=== PATIENT | female | born 1980 | race Caucasian/White ===

== ENCOUNTER 2018-03-30 10:15 | Emergency (ER) | payer BC ==
--- OUTSIDE RECORDS SUMMARY | 2018-03-30 10:22 | XMS REPORT ---
:1980 Author Organization [facility] Address [address] [place] [address] Dr. Burrell [address] [place] [id number] Care Team Providers Name Role Phone ELIANA HERNANDEZ Unavailable Unavailable Problems This patient has no known problems. Allergies, Adverse Reactions, Alerts This patient has no known allergies or adverse reactions. Medications This patient has no known medications. Results Test Description Test Time Test Comments Text Results Atomic Results Result Comments PROTHROMBIN GENE MUTATION 2017-02-04 13:15:00 Test Item Value Reference Range Comments PROTHROMBIN/FACTOR II (BEAKER) (test Negative for the [id number] lkkb=3452) (Prothrombin/Factor II) mutation. [id number](BEAKER) (test Ayse Castillo MD (electronic iyyj=8632) signature) This test is a genotyping assay which evaluates the DNA sequence at position [address]258 of the prothrombin (Factor II) gene. A region of the prothrombin (Factor II) gene is amplified by polymerase chain reaction followed by fluorescent monitoring of a specific pair of hybridized probes. Since genetic variation and other factors can affect the accuracy of direct mutation testing, these results should be interpreted in light of clinical and familial data.This test was developed and its performance characteristics determined by the [facility] Pathology Department, Section of Molecular Pathology. It has not been cleared or approved by the U.S. Food and Drug Administration (FDA), since FDA approval is not required for clinical use of the test. Validation was done as required by the Clinical Laboratory Improvement Amendments of 1988.CARDIOLIPIN ANTIBODIES, IGG AND [id number] 16:38:00 Test Item Value Reference Range Comments ANTICARDIOLIPIN IGG ANTIBODY (BEAKER) (test < GPL qrht=006) ANTICARDIOLIPIN IGM ANTIBODY (BEAKER) (test 0.2 MPL zltg=524) Anticardiolipin IgG Result Interpretation:NEG: <20 GPL; U/mlPOS: >/=20 GPL; U/mlAnticardiolipin IgM Result Interpretation:NEG: <20 MPL; U/mlPOS: >/=20 MPL; U/mlFACTOR 5 LEIDEN PCR (THROMBOTIC RISK)2017-02-03 12:23:00 Test Item Value Reference Range Comments FACTOR V LEIDEN (BEAKER) Negative for the R506Q (Factor (test rgbr=583) V Leiden) mutation [id number] (BEAKER) Ayse Castillo MD (test tomu=1414) (electronic signature) This test is a genotyping assay which evaluates the DNA sequence corresponding to Codon 506 of the Factor V Gene. A region of the Factor V Gene is amplified by polymerase chain reaction followed by fluorescent monitoring of a specific pair of hybridized probes. Since genetic variation and other factors can affect the accuracy of direct mutation testing, these results should be interpreted in light ofclinical and familial data.This test was developed and its performance characteristics determined bythe [facility], Section of Molecular Pathology. It has not been cleared or approved by the U.S. Food and Drug Administration (FDA), since FDA approval is not required for clinical use of the test. Validation was done as required by the Clinical Laboratory Improvement Amendments of 1988.DILUTE BOB VIPER VENOM ( DRVV)2017-02-02 16:51:00 Test Item Value Reference Range Comments PROTIME (BEAKER) (test 13.4 seconds 11.7-14.7 kslj=505) INR (BEAKER) (test pbfp=581) 1.0 <=5.9 PARTIAL THROMBOPLASTIN TIME 28.1 seconds 22.5-36.0 (BEAKER) (test kssd=536) DRVV INTERPRETATION (BEAKER) Normal DRVV Results (test oixr=8895) DRVV INTERPRETATION (BEAKER) Normal Hexagonal Phospholipid (test hvpu=559231) [id number] (BEAKER) Ayse Castillo MD (test zvgz=4458) (electronic signature) DRVV SCREEN RATIO (BEAKER) 0.92 <1.20 (test zyrm=5155) HEXAGONAL [id number] 15:43:00 Test Item Value Reference Range Comments HEXAGONAL PHOSPHOLIPID (BEAKER) (test hhxw=4383) Negative HEMOGLOBIN [id number] 16:56:00 Test Item Value Reference Range Comments HEMOGLOBIN A1C (CADY) (test sjqm=649) 5.0 % 4.3-6.1 MR, MRA, BRAIN, WITHOUT [id number] 15:36:00Reason for exam:-> Ischemic Stroke EvaluationFINAL REPORT MRA Head CLINICAL HISTORY: Stroke TECHNIQUE: MRA of the head utilizing 3-D jixf-hq-kopukc technique, with 3-D reconstructions. COMPARISON: None FINDINGS: There is noevidence for a [place] proximal branch vessel occlusion. There are probable infundibular origins of bilateral posterior communicating arteries. IMPRESSION: No evidence for a major [place] proximal branch vessel occlusion. MRA Neck CLINICAL HISTORY: Stroke TECHNIQUE: MRA of the neck utilizing 2-D and 3-D tnjp-tz-qblpgu technique, with 3-D reconstructions. COMPARISON: None FINDINGS: The carotid arteries in the neck are patent including their bifurcations. There is antegrade flow in the vertebral arteries in the neck. IMPRESSION: No evidence of hemodynamically significant stenosis in the cervical carotid or vertebral arteries by NASCET criteria. Signed: Jaron Coelho MDReport Verified Date/Time: 02/01/2017 15:36:42 Reading Location: [address] Neuro Reading Room MR, MRA, NECK, WITHOUT IV [id number] 15:36:00Reason for exam:->Ischemic Stroke EvaluationFINAL REPORT MRA Head CLINICAL HISTORY: Stroke TECHNIQUE: MRA of the head utilizing 3-D jzzw-vw-tkmxnm technique, with 3-D reconstructions. COMPARISON: None FINDINGS: There is noevidence for a [place] proximal branch vessel occlusion. There are probable infundibular origins of bilateral posterior communicating arteries. IMPRESSION: No evidence for a major [place] proximal branch vessel occlusion. MRA Neck CLINICAL HISTORY: Stroke TECHNIQUE: MRA of the neck utilizing 2-D and 3-D mcyk-yv-rmlmso technique, with 3-D reconstructions. COMPARISON: None FINDINGS: The carotid arteries in the neck are patent including their bifurcations. There is antegrade flow in the vertebral arteries in the neck. IMPRESSION: No evidence of hemodynamically significant stenosis in the cervical carotid or vertebral arteries by NASCET criteria. Signed: Jaron Coelho MDReport Verified Date/Time: 02/01/2017 15:36: 42 Reading Location: [address] Neuro Reading Room MR, BRAIN, WITHOUT [id number] 15:32:00Reason for exam:->Ischemic Stroke EvaluationFINAL REPORT MRI Brain without contrast Clinical History: Stroke Technique: MRI of the brain utilizing axial T2, FLAIR, GRE, DWI; sagittal and coronal T1-weighted images. Comparisons: None Findings: There is no evidence of acute infarct or hemorrhage. There is no significant white matter disease. There is no hydrocephalus, midline shift, or apparent mass effect. There are no extra-axial fluid collections. The craniocervical junction is preserved. The major intracranial flow-voids appear patent. IMPRESSION: No evidence of acute infarct, hemorrhage, or hydrocephalus. Signed: Jaron Coelho MDRepwatson Verified Date/Time: 02/01/2017 15:32:02 Reading Location: [address] Neuro Reading Room [id number] 14:45:00 Test Item Value Reference Range Comments RPR SCREEN (BEAKER) (test tnyo=933) Nonreactive Nonreactive PROTEIN C [id number] 12:46:00 Test Item Value Reference Range Comments PROTEIN C ACTIVITY (BEAKER) (test yldt=119) 124.0 % 70.0-130.0 ANTITHROMBIN [id number] 12:46:00 Test Item Value Reference Range Comments ANTITHROMBIN III ACTIVITY (BEAKER) (test ltee=264) 84.0 % 80.0-120.0 TSH/FREE T4 IF [id number] 06:46:00 Test Item Value Reference Range Comments THYROID STIMULATING HORMONE (BEAKER) (test 3.42 uIU/mL 0.35-4.94 gwhh=729) BASIC METABOLIC [id number] 06:27:00 Test Item Value Reference Range Comments SODIUM (BEAKER) (test 137 meq/L 136-145 abkz=325) POTASSIUM (BEAKER) (test 3.9 meq/L 3.5-5.1 ybhc=182) CHLORIDE (BEAKER) (test 107 meq/L 98-107 zqrb=103) CO2 (BEAKER) (test 20 meq/L 22-29 ktgj=699) BLOOD UREA NITROGEN 14 mg/dL 7-21 (BEAKER) (test kwtx=825) CREATININE (BEAKER) (test 0.67 mg/dL 0.57-1.25 nirf=300) GLUCOSE RANDOM (BEAKER) 95 mg/dL 70-105 (test dicz=871) CALCIUM (BEAKER) (test 8.8 mg/dL 8.4-10.2 grqg=459) EGFR (BEAKER) (test mL/min/1.73 sq m INSUFFICIENT CLINICAL DATA uuel=8712) TO CALCULATE ESTIMATED GFR. LIPID [id number] 06:27:00 Test Item Value Reference Range Comments TRIGLYCERIDES (BEAKER) (test dgmn=559) 119 mg/dL CHOLESTEROL (BEAKER) (test xlhp=395) 158 mg/dL HDL CHOLESTEROL (BEAKER) (test qpfc=537) 43 mg/dL LDL CHOLESTEROL CALCULATED (BEAKER) (test 91 mg/dL cezf=083) Triglyceride Reference Range: Low Risk <150 Borderline 150- 199 High Risk 200-499 Very High Risk >=500Cholesterol Reference Range: Low Risk <200 Borderline 200-239 High Risk > 240HDL Cholesterol Reference Range: Low Risk >=60 High Risk <40LDL Cholesterol Reference Range: Optimal <100 Near Optimal 100-129 Borderline 130-159 High 160-189 Very High >=190PROTHROMBIN TIME/[id number] 06:06:00 Test Item Value Reference Range Comments PROTIME (BEAKER) (test gyxq=330) 14.2 seconds 11.7-14.7 INR (BEAKER) (test vsjf=704) 1.1 <=5.9 RECOMMENDED COUMADIN/WARFARIN INR THERAPY RANGESSTANDARD DOSE: 2.0 - 3.0 Includes: PROPHYLAXIS forvenous thrombosis, systemic embolization; TREATMENT for venous thrombosis and/or pulmonary embolus.HIGH RISK: Target INR is 2.5-3.5 for patients with mechanical heart valves.CBC W/PLT COUNT & AUTO [id number] 05:57:00 Test Item Value Reference Range Comments WHITE BLOOD CELL COUNT (BEAKER) (test cbnw=912) 9.5 K/ L 3.5-10.5 RED BLOOD CELL COUNT (BEAKER) (test mhsg=875) 4.53 M/ L 3.93-5.22 HEMOGLOBIN (BEAKER) (test wnqa=120) 12.8 GM/DL 11.2-15.7 HEMATOCRIT (BEAKER) (test eezr=735) 38.0 % 34.1-44.9 MEAN CORPUSCULAR VOLUME (BEAKER) (test ggeq=636) 83.9 fL 79.4-94.8 MEAN CORPUSCULAR HEMOGLOBIN (BEAKER) (test 28.3 pg 25.6-32.2 yxdj=606) MEAN CORPUSCULAR HEMOGLOBIN CONC (BEAKER) (test 33.7 GM/DL 32.2-35.5 tyxo=118) RED CELL DISTRIBUTION WIDTH (BEAKER) (test 12.9 % 11.7-14.4 knuc=358) PLATELET COUNT (BEAKER) (test mxre=382) 256 K/CU MM 150-450 MEAN PLATELET VOLUME (BEAKER) (test qfdy=680) 9.5 fL 9.4-12.3 NUCLEATED RED BLOOD CELLS (BEAKER) (test 0 /100 WBC 0-0 ckai=744) NEUTROPHILS RELATIVE PERCENT (BEAKER) (test 60 % blkk=731) LYMPHOCYTES RELATIVE PERCENT (BEAKER) (test 28 % ktgi=990) MONOCYTES RELATIVE PERCENT (BEAKER) (test 9 % kusq=884) EOSINOPHILS RELATIVE PERCENT (BEAKER) (test 2 % kvsv=878) BASOPHILS RELATIVE PERCENT (BEAKER) (test 0 % vskk=693) NEUTROPHILS ABSOLUTE COUNT (BEAKER) (test 5.70 K/ L 1.56-6.13 hinj=382) LYMPHOCYTES ABSOLUTE COUNT (BEAKER) (test 2.69 K/ L 1.18-3.74 bfqg=209) MONOCYTES ABSOLUTE COUNT (BEAKER) (test 0.88 K/ L 0.24-0.36 dpck=908) EOSINOPHILS ABSOLUTE COUNT (BEAKER) (test 0.16 K/ L 0.04-0.36 iquc=493) BASOPHILS ABSOLUTE COUNT (BEAKER) (test 0.04 K/ L 0.01-0.08 mlfa=489) IMMATURE GRANULOCYTES-RELATIVE PERCENT (BEAKER) 1 % 0-1 (test wdff=3535) [id number] 00:13:00 Test Item Value Reference Range Comments HOMOCYSTEINE (BEAKER) (test mamf=261) 3.7 umol/L 5.1-15.4 TROPONIN [id number] 23:58:00 Test Item Value Reference Range Comments TROPONIN I (BEAKER) (test obsr=837) < ng/mL 0.00-0.03 Troponin I (TnI) levels must be interpreted in the context of the presenting symptoms and the clinical findings. Elevated TnI levels indicate myocardial damage, but are not specific for ischemic heart disease. Elevated TnI levels are seen in patients with other cardiac conditions (including myocarditis and congestive heart failure), and slight TnI elevations occur in patients with other conditions, including sepsis, renal failure, acidosis, acute neurological disease, and persistent tachyarrhythmia.VITAMIN [id number] 19:52:00 Test Item Value Reference Range Comments VITAMIN B12 (BEAKER) (test thmn=329) 759 pg/mL 213-816 SEDIMENTATION [id number] 19:42:00 Test Item Value Reference Range Comments SEDIMENTATION RATE, ERYTHROCYTE (BEAKER) (test 11 mm/HR 0-20 kxfn=048) HEPATIC FUNCTION [id number] 19:25:00 Test Item Value Reference Range Comments TOTAL PROTEIN (BEAKER) (test zkqi=177) 5.1 gm/dL 6.0-8.3 ALBUMIN (BEAKER) (test rxev=2865) 3.2 g/dL 3.5-5.0 BILIRUBIN TOTAL (BEAKER) (test zrvk=597) 0.3 mg/dL 0.2-1.2 BILIRUBIN DIRECT (BEAKER) (test mqvk=105) 0.1 mg/dL 0.1-0.5 ALKALINE PHOSPHATASE (BEAKER) (test rkuc=413) 39 U/L 40-150 AST (SGOT) (BEAKER) (test juwl=724) 13 U/L 5-34 ALT (SGPT) (BEAKER) (test eeii=062) 11 U/L 6-55 [id number] 19:10:00 Test Item Value Reference Range Comments PROTIME (BEAKER) (test gtat=531) 13.9 seconds 11.7-14.7 INR (BEAKER) (test brgl=528) 1.1 <=5.9 PARTIAL THROMBOPLASTIN TIME (BEAKER) (test 27.5 seconds 22.5-36.0 yprq=785) RECOMMENDED COUMADIN/WARFARIN INR THERAPY RANGESSTANDARD DOSE: 2.0 - 3.0 Includes: PROPHYLAXIS forvenous thrombosis, systemic embolization; TREATMENT for venous thrombosis and/or pulmonary embolus.HIGH RISK: Target INR is 2.5-3.5 for patients with mechanical heart valves.
--- OUTSIDE RECORDS SUMMARY | 2018-03-30 10:22 | XMS REPORT | Clinical Summary ---
:1980 Author Organization [facility] Address [address] [place] [address] Care Team Providers Name Role Phone Unavailable Primary Care Provider Unavailable Allergies No Known Allergies Medications Medication Sig Dispensed Refills Start Date End Date Status sertraline (ZOLOFT) 50 Take 50 mg by 0 Active MG tabletIndications: mouth daily. Anxiety with Depression cetirizine (ZYRTEC) 10 Take 10 mg by 0 Active MG tabletIndications: mouth daily. Seasonal Allergic Rhinitis Active Problems Problem Noted Date Stroke determined by clinical assessment 02/01/2017 Acute ischemic stroke 02/01/2017 Family History Medical History Relation Name Comments Hypertension Father Hypertension Mother Relation Name Status Comments Father Mother Social History Tobacco Use Types Packs/Day Years Used Date Never Smoker Smokeless Tobacco: Never Used Tobacco Cessation: Counseling Given: No Alcohol Use Drinks/Week oz/Week Comments Yes very minimal socially Sex Assigned at Date Recorded Not on file Job Start Date Occupation Industry Not on file Not on file Not on file Travel History Travel Start Travel End No recent travel history available. Last Filed Vital Signs Not on file Plan of Treatment Not on file Results Not on fileafter 03/29/2017 Insurance Payer Benefit Plan / Group Subscriber ID Type Phone Address [employer] - [employer] OPEN ACCESS HMO NAP xxxxxxxxxx HMO/POS
[2018-03-30 11:49] LABS: Absolute Lymphocytes (CBC) 2.3 K/uL (0.7-4.9); Absolute Monocytes 1.2 K/uL (0.1-1.3); Absolute Neutrophil 14.6 K/uL (1.8-8.0); Basophils % 0.3 % (0-1.3); Eosinophils % 0.4 % (0-4.4); Hematocrit 42.6 % (36.0-45.0); Lymphocytes % 12.6 % (15.3-44.8); MPV 7.5 fL (7.6-11.3); Monocytes % 6.8 % (3.3-12.3)
[2018-03-30 11:55] LABS: Protime INR 1.01
--- NOTE | 2018-03-30 11:56 | RAD REPORT ---
EXAM DESCRIPTION: RAD - Chest Single View - 03/30/2018 11:46 am CLINICAL HISTORY: CHEST PAIN Chest pain. COMPARISON: Chest Single View dated 01/31/2017; CHEST PA AND LAT 2 VIEW dated 06/23/2014; CHEST PA AN D LAT 2 VIEW dated 06/05/2008 FINDINGS: Portable technique limits examination quality. The lungs are grossly clear. The heart is normal in size. No displaced fractures. IMPRESSION: No acute intrathoracic process suspected.
[2018-03-30 12:01] LABS: ALT/SGPT 25 U/L (12-78); AST/SGOT 16 U/L (15-37); Albumin 4.4 g/dL (3.4-5.0); Alkaline Phosphatase 61 U/L (45-117); Bilirubin Direct < 0.1 mg/dL (0-0.2); Bilirubin Total 0.5 mg/dL (0.2-1.0); NT PRO-BNP 32 pg/mL (<125); Protein, Total 7.6 g/dL (6.4-8.2); Troponin (Emerg Dept Use Only) < 0.02 ng/mL (0.0-0.045)
--- NOTE | 2018-03-30 12:54 | ER ---
Nurse's Notes [facility] Unit Name: Funmilayo Kitchen Age: 37 yrs Sex: Female : 1980 Arrival Date: 03/30/2018 Time: 10:19 Bed 5 Private MD: Ale Courtney K Diagnosis: Other chest pain Presentation: 03/30 10:27 Presenting complaint: Patient states: Left sided CP, non radiating, described as sg burning, denies N/V/Diarrhea, reports nausea that has passed at this time, denies headache/dizziness,denies fever. Transition of care: patient was not received from another setting of care. Onset of symptoms was March 30, 2018. Risk Assessment: Do you want to hurt yourself or someone else? Patient reports no desire to harm self or others. Initial Sepsis Screen: Does the patient meet any 2 criteria? No. Patient's initial sepsis screen is negative. Does the patient have a suspected source of infection? No. Patient's initial sepsis screen is negative. Care prior to arrival: None. 10:27 Method Of Arrival: Ambulatory sg 10:27 Acuity: ANDRES 3 sg Triage Assessment: 10:30 General: Appears in no apparent distress. comfortable, Behavior is calm, cooperative, bp appropriate for age. Pain: Complains of pain in chest. 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 - Social history:: Smoking status: Patient/guardian denies using tobacco. - Ebola Screening: : Patient negative for fever greater than or equal to 101.5 degrees Fahrenheit, and additional compatible Ebola Virus Disease symptoms Patient denies exposure to infectious person Patient denies travel to an Ebola-affected area in the 21 days before illness onset No symptoms or risks identified at this time. Screenin:30 Abuse screen: Denies threats or abuse. Denies injuries from another. Nutritional bp screening: No deficits noted. Tuberculosis screening: No symptoms or risk factors identified. Fall Risk None identified. Assessment: 10:30 General: Appears in no apparent distress. comfortable, Behavior is calm, cooperative, bp appropriate for age. Pain: Complains of pain in chest Pain does not radiate. Pain began suddenly. Neuro: Level of Consciousness is awake, alert, obeys commands, Oriented to person, place, time, situation, Appropriate for age. Cardiovascular: Rhythm is sinus rhythm. Respiratory: Airway is patent Respiratory effort is even, unlabored, Respiratory pattern is regular, symmetrical. GI: No signs and/or symptoms were reported involving the gastrointestinal system. : No signs and/or symptoms were reported regarding the genitourinary system. EENT: No deficits noted. Derm: No deficits noted. Musculoskeletal: Circulation, motion, and sensation intact. Range of motion: intact in all extremities. 12:30 Reassessment: ALL CURRENT ORDERS COMPLETED, DISPO PENDING. bp 13:02 Reassessment: PT D/C HOME AMBULATORY WITH FAMILY, DX WITH NON-CARDIAC CHEST PAIN. bp Vital Signs: 10:28 Weight 95.25 kg; Height 5 ft. 6 in. (167.64 cm); Pain 7/10; sg 10:28 Pulse 97; Resp 17 S; Pulse Ox 100% on R/A; sg 10:30 BP 121 / 77; sg 12:30 BP 138 / 75; Pulse 85; Resp 14; Pulse Ox 100% ; bp 13:03 BP 112 / 81; Pulse 99; Resp 18; Pulse Ox 99% ; bp 10:28 Body Mass Index 33.89 (95.25 kg, 167.64 cm) sg ED Course: 10:19 Patient arrived in ED. mr 10:19 Ale Courtney MD is Private Physician. mr 10:28 Triage completed. sg 10:29 EKG done, by technology manager. reviewed by Arjun Son MD. sm3 10:30 Arm band placed on. sg 10:30 Patient has correct armband on for positive identification. Bed in low position. Call bp light in reach. Side rails up X2. electronic device monitor on. Pulse ox on. NIBP on. 10:38 Arjun Son MD is Attending Physician. ps1 10:47 Kavya Johansen, MARGARITA is Primary Nurse. ca1 11:33 No provider procedures requiring assistance completed. Inserted saline lock: 20 gauge bp in right antecubital area, using aseptic technique. Blood collected. Patient maintains SpO2 saturation greater than 95% on room air. 11:48 XRAY Chest (1 view) In Process Unspecified. EDMS 13:03 IV discontinued, intact, bleeding controlled, No redness/swelling at site. Pressure bp dressing applied. Administered Medications: No medications were administered Outcome: 12:53 Discharge ordered by . ps1 13:03 Discharged to home ambulatory, with family. bp 13:03 Condition: stable 13:03 Discharge instructions given to patient, Instructed on discharge instructions, follow up and referral plans. medication usage, Demonstrated understanding of instructions, follow-up care, medications, Prescriptions given X 3. 13:04 Patient left the ED. bp Signatures: Dispatcher [employer] EDMS J Carlos Elaine, RN RN sg Bev Dailey mr Meño Sumner RN RN bp Arjun Son MD MD ps1 Alexandria Mejia 3 Kavya Johansen RN RN ca1
--- NOTE | 2018-03-30 12:54 | EDPHYS ---
Physician Documentation [facility] Name: Funmilayo Kitchen Age: 37 yrs Sex: Female : 1980 Arrival Date: 03/30/2018 Time: 10:19 Bed 5 Private MD: Ale Courtney K ED Physician Arjun Son HPI: 03/30 12:50 This 37 yrs old Female presents to ER via Ambulatory with complaints of Chest ps1 Pain. 12:50 onset was last night upon awakening.Localized to left chest substernal without ps1 reproduction. Pain rated as mild to moderate. Intermittent cough. No remitting factors tried. Feels like reflux. . 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 - Social history:: Smoking status: Patient/guardian denies using tobacco. - Ebola Screening: : Patient negative for fever greater than or equal to 101.5 degrees Fahrenheit, and additional compatible Ebola Virus Disease symptoms Patient denies exposure to infectious person Patient denies travel to an Ebola-affected area in the 21 days before illness onset No symptoms or risks identified at this time. ROS: 12:50 Constitutional: Negative for fever, chills, and weight loss, Eyes: Negative for injury, ps1 pain, redness, and discharge, Respiratory: Negative for shortness of breath, cough, wheezing, and pleuritic chest pain, Abdomen/GI: Negative for abdominal pain, nausea, vomiting, diarrhea, and constipation, MS/Extremity: Negative for injury and deformity, Skin: Negative for injury, rash, and discoloration, Neuro: Negative for headache, weakness, numbness, tingling, and seizure. 12:50 Cardiovascular: Positive for chest pain, of the anterior aspect of left upper chest. Exam: 12:50 Constitutional: This is a well developed, well nourished patient who is awake, alert, ps1 and in no acute distress. Head/Face: Normocephalic, atraumatic. Eyes: Pupils equal round and reactive to light, extra-ocular motions intact. Lids and lashes normal. Conjunctiva and sclera are non-icteric and not injected. Chest/axilla: Normal chest wall appearance and motion. Nontender with no deformity. No lesions are appreciated. Cardiovascular: Regular rate and rhythm. No gallops, murmurs, or rubs. Normal PMI, no JVD. No pulse deficits. Respiratory: Lungs have equal breath sounds bilaterally, clear to auscultation and percussion. No rales, rhonchi or wheezes noted. No increased work of breathing, no retractions or nasal flaring. Abdomen/GI: Soft, non-tender, with normal bowel sounds. No distension or tympany. No guarding or rebound. No evidence of tenderness throughout. Skin: Warm, dry with normal turgor. Normal color with no rashes, no lesions, and no evidence of cellulitis. MS/ Extremity: Pulses equal, no cyanosis. Neurovascular intact. Full, normal range of motion. Neuro: Awake and alert, GCS 15, oriented to person, place, time, and situation. Cranial nerves II-XII grossly intact. Sensory grossly intact. Psych: Awake, alert, with orientation to person, place and time. Behavior, mood, and affect are within normal limits. Vital Signs: 10:28 Weight 95.25 kg; Height 5 ft. 6 in. (167.64 cm); Pain 7/10; sg 10:28 Pulse 97; Resp 17 S; Pulse Ox 100% on R/A; sg 10:30 BP 121 / 77; sg 12:30 BP 138 / 75; Pulse 85; Resp 14; Pulse Ox 100% ; bp 13:03 BP 112 / 81; Pulse 99; Resp 18; Pulse Ox 99% ; bp 10:28 Body Mass Index 33.89 (95.25 kg, 167.64 cm) sg MDM: 11:00 Patient medically screened. ps1 12:50 HEART Score: History: Slightly Suspicious (0), ECG: Normal (0), Age: < or = 45 years ps1 (0), Risk Factors: No Risk Factors Known (0), Troponin: < or = 1 x Normal Limit (0). Data reviewed: vital signs, nurses notes. 03/30 11:00 Order name: CBC with Diff ps1 03/30 11:00 Order name: LFT's ps1 03/30 11:00 Order name: Magnesium ps1 03/30 11:00 Order name: NT PRO-BNP; Complete Time: 12:05 [facility] 03/30 11:00 Order name: PT-INR; Complete Time: 12: [facility] 03/30 11:00 Order name: Troponin (emerg Dept Use Only); Complete Time: 12: [facility] 03/30 11:00 Order name: XRAY Chest (1 view); Complete Time: 12: [facility] 03/30 11:00 Order name: EKG; Complete Time: : [facility] 03/30 11:00 Order name: Cardiac monitoring; Complete Time: : [facility] 03/30 11:00 Order name: EKG - Nurse/Tech; Complete Time: : [facility] 03/30 11:00 Order name: DD; Complete Time: 12: [facility] 03/30 11:05 Order name: CBC with Automated Diff; Complete Time: 11:53 [facility] 03/30 11:05 Order name: Liver (Hepatic) Function; Complete Time: 12:05 [facility] 03/30 11:05 Order name: Magnesium; Complete Time: 12: [facility] 03/30 11:00 Order name: IV Saline Lock; Complete Time: : [facility] 03/30 11:00 Order name: Labs collected and sent; Complete Time: : [facility] 03/30 11:00 Order name: O2 Per Protocol; Complete Time: [facility] 03/30 11:00 Order name: O2 Sat Monitoring; Complete Time: 11:32 ps1 Administered Medications: No medications were administered Disposition: 03/30/18 12:53 Discharged to Home. Impression: Other chest pain. - Condition is Stable. - Discharge Instructions: Nonspecific Chest Pain. - Prescriptions for Anaprox DS 550 mg Oral Tablet - take 1 tablet by ORAL route every 12 hours As needed; 20 tablet. Zithromax Z- Daniel 250 mg Oral Tablet - take 1 tablet by ORAL route as directed for 5 days Day 1 - take two (2) tablets one time. Day 2, 3, 4 , 5 take one (1) tablet once daily.; 6 tablet. Medrol (Daniel) 4 mg Oral Tablets, Dose Pack - take 1 tablet by ORAL route as directed - follow package instructions; 1 packet. - Medication Reconciliation Form, Thank You Letter, Antibiotic Education, Prescription Opioid Use form. - Follow up: Private Physician; When: As needed; Reason: Recheck today's complaints, Continuance of care, Re-evaluation by your physician. Follow up: Emergency Department; When: As needed; Reason: Fever > 102 F, Trouble breathing, Worsening of condition. - Problem is new. - Symptoms have improved. Signatures: Dispatcher [employer] EDJ Carlos Encinas, RN RN sg Meño Sumner RN RN Arjun Farr MD MD ps1 Corrections: (The following items were deleted from the chart) 13:04 12:53 03/30/2018 12:53 Discharged to Home. Impression: Other chest pain. Condition is bp Stable. Forms are Medication Reconciliation Form, Thank You Letter, Antibiotic Education, Prescription Opioid Use. Follow up: Private Physician; When: As needed; Reason: Recheck today's complaints, Continuance of care, Re-evaluation by your physician. Follow up: Emergency Department; When: As needed; Reason: Fever > 102 F, Trouble breathing, Worsening of condition. Problem is new. Symptoms have improved. ps1
[2018-03-30 13:18] VITALS: BP 112/81; O2SAT 99
--- NOTE | 2018-03-30 18:21 | EKG ---
Test Date: 2018-03-30 Test Time: 10:23:30 Alteration Workroom Supervisor: DEMARCUS MEASUREMENT RESULTS: Intervals: Rate: 97 MI: 140 QRSD: 92 QT: 344 QTc: 436 [place]: P: 40 MI: 140 QRS: 63 T: 23 INTERPRETIVE STATEMENTS: Normal sinus rhythm Normal ECG Compared to ECG 01/31/2017 14:33:34 No significant changes Electronically Signed On 03-30-18 18:19:24 SENIOR PRIVATE CLIENT ADVISOR by Kirill Corral
== END 2018-03-30 13:04 | disposition home or self-care (01) ==
LOC: ER 10:15
DX: R07.89 Other chest pain (principal); F41.9 Anxiety disorder, unspecified; Z79.899 Other long term (current) drug therapy
CPT/HCPCS: 36415; 71045; 80076; 83735; 83880; 84484; 85025; 85379; 85610; 93005; 99285

== ENCOUNTER 2023-02-24 03:49 | Inpatient (IN) | payer BC ==
--- OUTSIDE RECORDS SUMMARY | 2023-02-24 03:52 | XMS REPORT | Continuity of Care Document ---
Author Name Unknown Address [address] [place] [address] th[address] Address [address] [place] [address] 1 [address] [place] [address] Care Team Providers Care Electrical Linesworker Name Role Phone [email or web address] Attending Clinician Odalysa david [email or web address] Admitting Clinician Odalysa ble Payers Payer Name Policy Type Policy Number Effective Date Expirati on Date Source [place] [id number] 2021 00:00:00 Encounters Start Date/Time End Date/Time Encounter Type Admission Type Attending Clinicians Care Facility Care Department Encounter ID Source 2022-12-15 00:00:00 2022-12-15 00:00:00 Outpatient [email or web address] PRIV PRIV [id number] [facility] 2022-12-15 00:00:00 2022-12-15 00:00:00 Outpatient [email or web address] [email or web address] PRIV [id number] [facility] 2022-10-31 00:00:00 2022-10-31 00:00:00 Outpatient [email or web address] PRIV PRIV [id number] [facility] 2022-10-31 00:00:00 2022-10-31 00:00:00 Outpatient [email or web address] PRIV PRIV [id number] [facility]
[2023-02-24] MEDS ORDERED: KETOROLAC 30 MG/ML INJ ONE (04:48)
[2023-02-24] MEDS ORDERED: ONDANSETRON 4 MG/2 ML VIAL ONE ×2 (04:48→12:13)
[2023-02-24] MEDS ORDERED: MAGNES/ALUMIN/SIMET 30ML UCUP ONE (04:48)
[2023-02-24] MEDS ORDERED: NA CHLORIDE 0.9% 1,000 ML ONE ×3 (04:49→09:02)
[2023-02-24] MEDS ORDERED: FAMOTIDINE 20 MG/2 ML VIAL IV ONE (04:49)
[2023-02-24] MEDS ORDERED: PANTOPRAZOLE 40 MG INJ ONE (04:49)
[2023-02-24 05:03] LABS: Absolute Lymphocytes (CBC) 2.4 K/uL (0.7-4.9); Hematocrit 38.2 % (36.0-45.0); MCV 82.1 fL (80-100); MPV 7.5 fL (7.6-11.3); Platelets 323 thou/uL (152-406); RBC Red Blood Cell Count 4.66 M/uL (3.86-4.86)
[2023-02-24 05:31] LABS: Albumin 3.9 g/dL (3.4-5.0); Bilirubin Total 0.3 mg/dL (0.2-1.0); Potassium 3.4 mEq/L (3.5-5.1); Protein, Total 7.5 g/dL (6.4-8.2)
[2023-02-24 05:58] LABS: Specific Gravity 1.017 (1.005-1.030); Urine Bilirubin NEGATIVE (Negative); Urine Blood Negative (Negative); Urine Clarity Clear (Clear); Urine Color Light-Yellow (Yellow); Urine Glucose NEGATIVE (Negative); Urine Protein NEGATIVE (Negative); Urine Urobilinogen Normal (Normal); Urine pH 6.5 (5.0-7.0)
--- NOTE | 2023-02-24 06:49 | EDPHYS ---
Physician Documentation [facility] Name: Funmilayo Kitchen Age: 42 yrs Sex: Female : 1980 Arrival Date: 02/24/2023 Time: 03:49 Bed 19 Private MD: ED Physician William Baker HPI: 02/24 04:19 This 42 yrs old Female presents to ER via Ambulatory with complaints of sp4 Abdominal Pain, ABD TENDERNESS. 04:26 42-year-old female presents with acute epigastric pain, starting yesterday evening sp4 which patient thinks may be in response to Bactrim antibiotic that she takes since 02/17/2023. Pain has intensified this morning precipitating and is associated with overall diffuse abdominal upper tenderness. Patient has history of cholecystectomy. 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 - Social history:: Smoking status: Patient denies any tobacco usage or history of. Patient uses alcohol, occasionally. Patient/guardian denies using street drugs. - Family history:: not pertinent. ROS: 04:26 Constitutional: Negative for fever, chills, and weight loss, positive epigastric sp4 abdominal pain 04:26 All other systems are negative, Exam: 04:26 Constitutional: This is a well developed, well nourished patient who is awake, alert, sp4 and in no acute distress. Head/Face: Normocephalic, atraumatic. Eyes: Pupils equal round and reactive to light, extra-ocular motions intact. Lids and lashes normal. Conjunctiva and sclera are not injected. Cornea within normal limits. Periorbital areas with no swelling, redness, or edema. ENT: Nares patent. No nasal discharge, no septal abnormalities noted. Tympanic membranes are normal and external auditory canals are clear. Oropharynx with no redness, swelling, or masses, exudates, or evidence of obstruction, uvula midline. Mucous membranes moist. Neck: Trachea midline, no thyromegaly or masses palpated, and no cervical lymphadenopathy. Supple, full range of motion without nuchal rigidity, or vertebral point tenderness. Chest/axilla: Normal chest wall appearance and motion. Nontender with no deformity. No lesions are appreciated. Cardiovascular: Regular rate and rhythm with a normal S1 and S2. No gallops, murmurs, or rubs. Normal PMI, no JVD. No pulse deficits. Respiratory: Lungs have equal breath sounds bilaterally, clear to auscultation and percussion. No rales, rhonchi or wheezes noted. No increased work of breathing, no retractions or nasal flaring. Abdomen/GI: Positive epigastric tenderness with upper abdominal discomfort. No distension or tympany. No guarding or rebound. Back: No spinal tenderness. No costovertebral tenderness. Skin: Warm, dry with normal turgor. Normal color with no rashes, no lesions, and no evidence of cellulitis. MS/ Extremity: Pulses equal, no cyanosis. Neurovascular intact. Full, normal range of motion. Neuro: Awake and alert, GCS 15, oriented to person, place, time, and situation. Cranial nerves II-XII grossly intact. Motor strength 5/5 in all extremities. Sensory grossly intact. Psych: Awake, alert, with orientation to person, place and time. Behavior, mood, and affect are within normal limits Vital Signs: 03:54 BP 124 / 78; Pulse 75; Resp 16; Temp 97.6; Pulse Ox 99% on R/A; Weight 77.11 kg; Height pf1 5 ft. 6 in. ; Pain 5/10; 04:48 BP 124 / 78; Pulse 69; Resp 18; Pulse Ox 100% on R/A; nw1 06:30 BP 115 / 80; Pulse 82; Resp 15; Pulse Ox 100% on R/A; nw1 07:10 BP 118 / 81; Pulse 75; Resp 16; Pulse Ox 100% ; Pain 4/10; ll1 03:54 Body Mass Index 27.44 (77.11 kg, 167.64 cm) pf1 03:54 Pain Scale: Adult pf1 07:10 Pain Scale: Adult ll1 [place] Coma Score: 04:21 Eye Response: spontaneous(4). Motor Response: obeys commands(6). Verbal Response: nw1 oriented(5). Total: 15. MDM: 04:18 Patient medically screened. sp4 06:34 Data reviewed: vital signs, nurses notes, old medical records, lab test result(s), sp4 radiologic studies, CT scan, CT FINDINGS: Lung bases: Unremarkable. No mass. No consolidation. ABDOMEN: Liver: Hepatomegaly. Gallbladder and bile ducts: Gallbladder is surgically absent. No ductal dilation. Pancreas: Mild peripancreatic stranding. No ductal dilation. Spleen: Unremarkable. No splenomegaly. Adrenals: Unremarkable. No mass. Kidneys and ureters: Unremarkable. No obstructing stones. No hydronephrosis. Stomach and bowel: Unremarkable. No obstruction. No mucosal thickening. PELVIS: Appendix: No findings to suggest acute appendicitis. Bladder: Unremarkable. Reproductive: Unremarkable as visualized. ABDOMEN and PELVIS: Intraperitoneal space: Unremarkable. No free air. No significant fluid collection. Bones/joints: No acute fracture. No dislocation. Soft tissues: Unremarkable. Vasculature: Unremarkable. No abdominal aortic aneurysm. Lymph nodes: Unremarkable. No enlarged lymph nodes. IMPRESSION: 1. Mild peripancreatic stranding. Correlate with any concern for acute pancreatitis. 2. Gallbladder is surgically absent. 3. Hepatomegaly. . 06:47 Differential Diagnosis altered mental status, sepsis, flu. sp4 02/24 04:19 Order name: CBC with Diff; Complete Time: 05:56 sp4 02/24 04:19 Order name: CMP; Complete Time: 05:56 sp4 02/24 04:19 Order name: Lipase; Complete Time: 05:56 4 02/24 04:19 Order name: Urinalysis w/ reflexes; Complete Time: 06:33 4 02/24 06:47 Order name: COVID-19 SARS RT PCR; Complete Time: 20:40 sp4 02/24 07:39 Order name: CBC with Automated Diff EDMS 02/24 07:39 Order name: CBC with Automated Diff EDMS 02/24 07:39 Order name: CBC with Automated Diff EDMS 02/24 07:39 Order name: CBC with Automated Diff EDMS 02/24 07:39 Order name: CBC with Automated Diff EDMS 02/24 07:39 Order name: CBC with Automated Diff EDMS 02/24 07:39 Order name: Comprehensive Metabolic Panel EDMS 02/24 07:39 Order name: Comprehensive Metabolic Panel EDMS 02/24 07:39 Order name: Comprehensive Metabolic Panel EDMS 02/24 07:39 Order name: Comprehensive Metabolic Panel EDMS 02/24 07:39 Order name: Comprehensive Metabolic Panel EDMS 02/24 07:39 Order name: Comprehensive Metabolic Panel EDMS 02/24 07:39 Order name: Magnesium EDMS 02/24 07:39 Order name: Magnesium EDMS 02/24 07:39 Order name: Magnesium EDMS 02/24 07:39 Order name: Magnesium EDMS 02/24 07:39 Order name: Magnesium EDMS 02/24 07:39 Order name: Magnesium EDMS 02/24 07:39 Order name: Phosphorus EDMS 02/24 07:39 Order name: Phosphorus EDMS 02/24 07:39 Order name: Phosphorus EDMS 02/24 07:39 Order name: Phosphorus EDMS 02/24 07:39 Order name: Phosphorus EDMS 02/24 07:39 Order name: Phosphorus EDMS 02/24 04:26 Order name: CT Abd/Pelvis - Without Contrast; Complete Time: 20:40 sp4 02/24 05:57 Order name: US Abdomen Limited; Complete Time: 20:40 sp4 02/24 04:19 Order name: IV Saline Lock; Complete Time: 04:47 sp4 02/24 04:19 Order name: Labs collected and sent; Complete Time: 04:47 sp4 Administered Medications: 04:47 Drug: Ketorolac IVP 30 mg IVP once Route: IVP; Site: right forearm; nw1 07:38 Follow up: Response: No adverse reaction ll1 04:47 Drug: Alum-Mag Hydroxide-Simeth PO Suspension (200 mg-200 mg-20 mg/5 mL) 30 ml PO once nw1 Route: PO; 07:38 Follow up: Response: No adverse reaction ll1 04:47 Drug: Pantoprazole IVP 40 mg IVP once Route: IVP; Site: right forearm; nw1 07:38 Follow up: Response: No adverse reaction ll1 04:47 Drug: Famotidine IVP 20 mg IVP once; dilute with 10 mL 0.9% NaCl; give over 2 minutes nw1 Route: IVP; Site: right forearm; 07:38 Follow up: Response: No adverse reaction ll1 04:48 Drug: NS 0.9% IV 1000 ml IV at 1 bolus Per protocol; 1000 mL bolus Route: IV; Rate: 1 nw1 bolus; Site: right forearm; 07:38 Follow up: IV Status: Completed infusion; IV Intake: 1000ml ll1 04:48 Drug: Ondansetron IVP 4 mg IVP once; over 2 minutes Route: IVP; Site: right forearm; nw1 07:37 Follow up: Response: No adverse reaction ll1 07:10 Drug: NS 0.9% IV 1000 ml IV at 1 bolus Per protocol; 1000 mL bolus Route: IV; Rate: 1 ll1 bolus; Site: right antecubital; 08:39 Follow up: Response: No adverse reaction; IV Status: Completed infusion; IV Intake: ll1 1000ml 07:11 Drug: morphine IVP or IV 4 mg IVP once over 4 mins Route: IVP; Infused Over: 4 mins; ll1 Site: right antecubital; 08:39 Follow up: Response: No adverse reaction; Pain is decreased; RASS: Alert and Calm (0) ll1 07:20 Drug: metoCLOPramide IVP 10 mg IVP once; over 1 to 2 minutes Route: IVP; Site: right ll1 antecubital; 08:39 Follow up: Response: No adverse reaction ll1 Disposition Summary: 02/24/23 06:49 Hospitalization Ordered Notes: Hospitalization Status: Inpatient Admission sp4 Provider: George Burns spLala Condition: Stable sp4 Problem: new sp4 Symptoms: have improved sp4 Bed/Room Type: Standard sp4 Location: Telemetry/MedSurg (Inpatient)(02/24/23 16:50) bd Room Assignment: [facility](02/24/23 16:50) Diagnosis - Pancreatitis , acute sp4 Forms: - Medication Reconciliation Form sp4 - SBAR form sp4 - Leadership Thank You Letter sp4 Signatures: Dispatcher [employer] EDMS Tamia Collins Lynsay, RN RN ll1 Shilpa Stark RN RN pf1 William Baker MD MD sp4 Sandi Forbes RN RN nw1 Corrections: (The following items were deleted from the chart) 11:13 06:49 Telemetry/MedSurg (Inpatient) sp4 ll1 11:13 06:49 sp4 ll1 11:13 11:13 ll1 ll1 16:50 11:13 [facility] ER HOLD ll1 bd 16:50 11:13 ERHOLD- ll1 bd
--- NOTE | 2023-02-24 06:49 | ER ---
Nurse's Notes [facility] Name: Funmilayo Kitchen Age: 42 yrs Sex: Female : 1980 Arrival Date: 02/24/2023 Time: 03:49 Bed 19 Private MD: Diagnosis: Pancreatitis , acute Presentation: 02/24 03:54 Chief complaint: Patient states: mid upper abdominal pain of 5,onset Thursday AM. Patient pf1 stated did a fleet enema on Thursday for constipation. Patient stated is currently taking Bactrim for UTI since 02/17/23 that was prescribed by Dr. Hogan. 03:54 Coronavirus screen: Vaccine status: Client denies travel out of the [place] in the last 14 pf1 days. At this time, the client does not indicate any symptoms associated with coronavirus-19. Ebola Screen: Patient negative for fever greater than or equal to 101.5 degrees Fahrenheit, and additional compatible Ebola Virus Disease symptoms. Initial Sepsis Screen: Does the patient meet any 2 criteria? No. Patient's initial sepsis screen is negative. Does the patient have a suspected source of infection? No. Patient's initial sepsis screen is negative. Risk Assessment: Do you want to hurt yourself or someone else? Patient reports no desire to harm self or others. 03:54 Method Of Arrival: Ambulatory pf1 03:54 Acuity: ANDRES 3 pf1 07:41 Onset of symptoms was February 22, 2023. 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 - Social history:: Smoking status: Patient denies any tobacco usage or history of. Patient uses alcohol, occasionally. Patient/guardian denies using street drugs. - Family history:: not pertinent. Screenin:21 [facility] ED Fall Risk Assessment (Adult) History of falling in the last 3 months, nw1 including since admission No falls in past 3 months (0 pts) Confusion or Disorientation No (0 pts) Intoxicated or Sedated No (0 pts) Impaired Gait No (0 pts) Mobility Assist Device Used No (0 pt) Altered Elimination No (0 pt) Score/Fall Risk Level 0 - 2 = Low Risk Oriented to surroundings, Maintained a safe environment, Educated pt \T\ family on fall prevention, incl call for assistance when getting out of bed, Provided non-skid footwear, Hourly rounding (assess needs \T\ fall precautionary measures) done. Abuse screen: Denies threats or abuse. Denies injuries from another. Nutritional screening: No deficits noted. Tuberculosis screening: No symptoms or risk factors identified. Assessment: 04:21 Reassessment: Pt states mid abdominal pain x several weeks, increasing to intolerable nw1 this morning. Pt denies nausea and vomiting. Pt noted with tender to touch pain to upper region of abdomen. Pt states that she started looking up information online in regards to the location of her pain and decided to come into the ER. General: Appears in no apparent distress. Behavior is calm, cooperative, appropriate for age. Pain: Complains of pain in epigastric area. Cardiovascular: No deficits noted. Denies chest pain, nausea, vomiting. Respiratory: No deficits noted. Airway is patent Trachea midline Respiratory effort is even, unlabored, Respiratory pattern is regular, symmetrical. GI: Bowel sounds present X 4 quads. Abdomen is tender to palpation in epigastric area Reports bloating, constipation. GI: Patient currently denies nausea, vomiting. Derm: No deficits noted. No signs and/or symptoms reported regarding the dermatologic system. Musculoskeletal: No deficits noted. No signs and/or symptoms reported regarding the musculoskeletal system. 07:00 Reassessment: Report received from warehouse supervisor 3rd shift RN. ll1 07:20 Reassessment: No changes from previously documented assessment. Patient and/or family ll1 updated on plan of care and expected duration. Pain level reassessed. Patient is alert, oriented x 3, equal unlabored respirations, skin warm/dry/pink. Patient states feeling better. Vital Signs: 03:54 BP 124 / 78; Pulse 75; Resp 16; Temp 97.6; Pulse Ox 99% on R/A; Weight 77.11 kg; Height pf1 5 ft. 6 in. ; Pain 5/10; 04:48 BP 124 / 78; Pulse 69; Resp 18; Pulse Ox 100% on R/A; nw1 06:30 BP 115 / 80; Pulse 82; Resp 15; Pulse Ox 100% on R/A; nw1 07:10 BP 118 / 81; Pulse 75; Resp 16; Pulse Ox 100% ; Pain 4/10; ll1 03:54 Body Mass Index 27.44 (77.11 kg, 167.64 cm) pf1 03:54 Pain Scale: Adult pf1 07:10 Pain Scale: Adult ll1 [place] Coma Score: 04:21 Eye Response: spontaneous(4). Motor Response: obeys commands(6). Verbal Response: nw1 oriented(5). Total: 15. ED Course: 03:51 Patient arrived in ED. jj6 04:14 Triage completed. pf1 04:18 William Baker MD is Attending Physician. sp4 04:21 Sandi Forbes, MARGARITA is Primary Nurse. nw1 04:21 Patient has correct armband on for positive identification. Placed in gown. Bed in low nw1 position. Call light in reach. Side rails up X2. Provided Education on: POC. Door closed. Warm blanket given. 04:21 No provider procedures requiring assistance completed. Inserted saline lock: 18 gauge nw1 in right antecubital area, using aseptic technique. 04:48 CBC with Diff Sent. nw1 04:48 CMP Sent. nw1 04:48 Lipase Sent. nw1 04:48 Urinalysis w/ reflexes Sent. nw1 05:12 CT Abd/Pelvis - Without Contrast In Process Unspecified. EDMS 06:48 George Burns is Hospitalizing Provider. sp4 07:16 US Abdomen Limited In Process Unspecified. EDMS 07:41 Arm band placed on. ll1 07:41 Patient admitted, IV remains in place. ll1 Administered Medications: 04:47 Drug: Ketorolac IVP 30 mg IVP once Route: IVP; Site: right forearm; nw1 07:38 Follow up: Response: No adverse reaction ll1 04:47 Drug: Alum-Mag Hydroxide-Simeth PO Suspension (200 mg-200 mg-20 mg/5 mL) 30 ml PO once nw1 Route: PO; 07:38 Follow up: Response: No adverse reaction ll1 04:47 Drug: Pantoprazole IVP 40 mg IVP once Route: IVP; Site: right forearm; nw1 07:38 Follow up: Response: No adverse reaction ll1 04:47 Drug: Famotidine IVP 20 mg IVP once; dilute with 10 mL 0.9% NaCl; give over 2 minutes nw1 Route: IVP; Site: right forearm; 07:38 Follow up: Response: No adverse reaction ll1 04:48 Drug: NS 0.9% IV 1000 ml IV at 1 bolus Per protocol; 1000 mL bolus Route: IV; Rate: 1 nw1 bolus; Site: right forearm; 07:38 Follow up: IV Status: Completed infusion; IV Intake: 1000ml ll1 04:48 Drug: Ondansetron IVP 4 mg IVP once; over 2 minutes Route: IVP; Site: right forearm; nw1 07:37 Follow up: Response: No adverse reaction ll1 07:10 Drug: NS 0.9% IV 1000 ml IV at 1 bolus Per protocol; 1000 mL bolus Route: IV; Rate: 1 ll1 bolus; Site: right antecubital; 08:39 Follow up: Response: No adverse reaction; IV Status: Completed infusion; IV Intake: ll1 1000ml 07:11 Drug: morphine IVP or IV 4 mg IVP once over 4 mins Route: IVP; Infused Over: 4 mins; ll1 Site: right antecubital; 08:39 Follow up: Response: No adverse reaction; Pain is decreased; RASS: Alert and Calm (0) ll1 07:20 Drug: metoCLOPramide IVP 10 mg IVP once; over 1 to 2 minutes Route: IVP; Site: right ll1 antecubital; 08:39 Follow up: Response: No adverse reaction ll1 Medication: 04:21 VIS not applicable for this client. nw1 Intake: 07:38 IV: 1000ml; Total: 1000ml. ll1 08:39 IV: 1000ml; Total: 2000ml. ll1 Outcome: 06:49 Decision to Hospitalize by Provider. sp4 07:41 Admitted to ER Hold. Please see [facility] for further documentation. ll1 07:41 Condition: stable 07:41 Instructed on the need for admit, 18:04 Patient left the ED. ll1 Signatures: Dispatcher [employer] EDMS Milo Cerda RN RN ll1 Cyndie Lee6 Shilpa Stark RN RN pf1 William Baker MD MD sp4 Sandi Forbes, MARGARITA RN nw1
[2023-02-24] MEDS ORDERED: MORPHINE 4 MG/ML SYR ONE (07:24)
--- NOTE | 2023-02-24 07:25 | RAD REPORT ---
EXAM DESCRIPTION: US - Abdomen Exam Limited - 02/24/2023 7:14 am CLINICAL HISTORY: pancreatitis COMPARISON: Abdomen Exam Complete dated 09/24/2015 FINDINGS: The gallbladder is surgically absent. The common bile duct is normal measuring 5 mm. The liver demonstrates no findings of intrahepatic biliary dilatation. IMPRESSION: Status post cholecystectomy with normal size common duct.
[2023-02-24] MEDS ORDERED: METOCLOPRAMIDE 10 MG/2mL INJ ONE (07:33)
[2023-02-24 08:33] VITALS: BMI 27.7
[2023-02-24] MEDS ORDERED: ENOXAPARIN 40 MG/0.4 ML SQ ONE (09:02)
[2023-02-24] MEDS: NA CHLORIDE 0.9% 1,000 ML IV SCH ×2 (09:10→19:58)
[2023-02-24] MEDS: ENOXAPARIN 40 MG/0.4 ML SQ SCH (09:15)
--- NOTE | 2023-02-24 09:38 | P.HP ---
Certification for Inpatient Patient admitted to: Observation With expected LOS: <2 Midnights Patient will require the following post-hospital care: None Practitioner: I am a practitioner with admitting privileges, knowledge of patient current condition, hospital course, and medical plan of care. Services: Services provided to patient in accordance with Admission requirements found in Title 42 Section 412.3 of the Code of Federal Regulations Patient History Date of Service: 02/24/23 Reason for admission: Abdominal pain History of Present Illness: Funmilayo Kitchen is a 42-year-old female with past medical history of anxiety, past surgical history of cholecystectomy (ten years ago) who presents to the ED with complaints of abdominal pain and tenderness. She reports acute epigastric pain started last night believing this could be a reaction to Bactrim that she was taking for UTI. She reports having 2 glasses of wine last night while taking her dose of Bactrim. With symptoms of epigastric pain only ultrasound of the abdomen was performed reporting normal size of the common bile duct measuring 5 mm, liver demonstrates no findings of intra hepatic biliary dilatation. CT abdomen pelvis reports pancreas with mild peripancreatic stranding, hepatomegaly. Initial vitals BP 124 / 78; Pulse 75; Resp 16; Temp 97.6; Pulse Ox 99% on R/A. Laboratory evaluation with WBC 11.9, H&H 12/38, sodium 136, potassium 3.4, BUN/creatinine 9/0.66, lipase 1149. Funmilayo will be admitted to hospitalist service for further evaluation and treatment of acute pancreatitis. Allergies No Known Allergies Allergy (Unverified 09/13/11 13:18) Home Medications: Diethylpropion HCl 75 mg PO DAILY 02/24/23 Sertraline [Zoloft*] 50 mg PO DAILY AFTER SUPPER 02/24/23 - Past Medical/Surgical History Has patient received pneumonia vaccine in the past: Yes Diabetic: No -: pancreatitis - Social History Smoking Status: Never smoker CD- Drugs: No Place of Residence: Home Review of Systems Gastrointestinal: Abdominal Pain (epigastric pain) Physical Examination - Physical Exam General: Alert, In no apparent distress, Oriented x3 HEENT: Atraumatic, Normocephalic, PERRLA Neck: Supple, 2+ carotid pulse no bruit, JVD not distended Respiratory: Clear to auscultation bilaterally, Normal air movement Cardiovascular: No edema, Normal pulses, Regular rate/rhythm, Normal S1 S2 Capillary refill: <2 Seconds Gastrointestinal: Normal bowel sounds, Soft and benign, Tenderness (epigastric pain to palpation) Musculoskeletal: No clubbing, No swelling, No contractures Integumentary: No rashes, No breakdown Neurological: Normal speech, Normal strength at 5/5 x4 extr, Normal tone - Studies Laboratory Data (last 24 hrs) 02/24/23 02/24/23 04:10 04:10 WBC 11.90 H Hgb 12.9 Hct 38.2 Plt Count 323 Sodium 136 Potassium 3.4 L BUN 9 Creatinine 0.66 Glucose 102 Total Bilirubin 0.3 AST 8 L ALT 20 Alkaline Phosphatase 56 Lipase 1149 H Assessment and Plan - Plan Assessment and plan Acute pancreatitis Epigastric pain Hepatomegaly CLD, no nausea vomiting with this epigastric pain episode CT abdomen pelvis reports mild peripancreatic stranding, hepatomegaly Ultrasound abdomen no significant findings, common bile duct measuring 5 mm No antibiotics for now IV fluids 100 mL/h, 2 L normal saline given in the ED Pain management Follow up outpatient for hepatomegaly History of anxiety Continue home medication History of UTI outpatient Bactrim DVT PPx Lovenox Full code LOS 24 hours Discharge Plan: Home Plan to discharge in: 24 Hours - Advance Directives Does patient have a Living Will: No Does patient have a Durable POA for Healthcare: No
--- NOTE | 2023-02-24 10:08 | RAD REPORT ---
EXAM DESCRIPTION: CT Abdomen and Pelvis Without Intravenous Contrast CLINICAL HISTORY: The patient is 42 years old and is Female; ABD PAIN TECHNIQUE: Axial computed tomography images of the abdomen and pelvis without intravenous contrast. Sagittal and coronal reformatted images were created and reviewed. This CT exam was performed usi ng one or more of the following dose reduction techniques: automated exposure control, adjustment o f the mA and/or kV according to patient size, and/or use of iterative reconstruction technique. COMPARISON: No relevant prior studies available. FINDINGS: Lung bases: Unremarkable. No mass. No consolidation. ABDOMEN: Liver: Hepatomegaly. Gallbladder and bile ducts: Gallbladder is surgically absent. No ductal dilation. Pancreas: Mild peripancreatic stranding. No ductal dilation. Spleen: Unremarkable. No splenomegaly. Adrenals: Unremarkable. No mass. Kidneys and ureters: Unremarkable. No obstructing stones. No hydronephrosis. Stomach and bowel: Unremarkable. No obstruction. No mucosal thickening. PELVIS: Appendix: No findings to suggest acute appendicitis. Bladder: Unremarkable. Reproductive: Unremarkable as visualized. ABDOMEN and PELVIS: Intraperitoneal space: Unremarkable. No free air. No significant fluid collection. Bones/joints: No acute fracture. No dislocation. Soft tissues: Unremarkable. Vasculature: Unremarkable. No abdominal aortic aneurysm. Lymph nodes: Unremarkable. No enlarged lymph nodes. IMPRESSION: 1. Mild peripancreatic stranding. Correlate with any concern for acute pancreatitis. 2. Gallbladder is surgically absent. 3. Hepatomegaly. Electronically signed by: Jose Cruz Mckay MD 02/24/2023 05:38 AM SPECIAL SYSTEMS TECHNICIAN Due to temporary technical issues with the PACS/Fluency reporting system, reports are being signed by the in house radiologists without review as a courtesy to insure prompt reporting. The interpreting radiologist is fully responsible for the content of the report.
[2023-02-24] MEDS: MORPHINE 2 MG/ML SYR IV PRN ×3 (12:02→22:55)
[2023-02-24] MEDS: ONDANSETRON 4 MG/2 ML VIAL IV PRN ×2 (12:02→22:57)
[2023-02-24] MEDS ORDERED: MORPHINE 2 MG/ML SYR ONE ×2 (12:13→17:41)
[2023-02-24 18:45] VITALS: O2SAT 100
[2023-02-25 03:08] LABS: Absolute Lymphocytes (CBC) 2.5 K/uL (0.7-4.9); Hematocrit 34.5 % (36.0-45.0); Lymphocytes % 31.9 % (15.3-44.8); MCV 82.5 fL (80-100); MPV 7.4 fL (7.6-11.3); Platelets 256 thou/uL (152-406); RBC Red Blood Cell Count 4.19 M/uL (3.86-4.86)
[2023-02-25 03:10] LABS: Albumin 3.4 g/dL (3.4-5.0); Bilirubin Total 0.4 mg/dL (0.2-1.0); Magnesium 2.1 mg/dL (1.6-2.4); Phosphorus 3.7 mg/dL (2.5-4.9); Potassium 4.1 mEq/L (3.5-5.1); Protein, Total 6.4 g/dL (6.4-8.2)
[2023-02-25] MEDS: ONDANSETRON 4 MG/2 ML VIAL IV PRN (04:08)
[2023-02-25] MEDS: MORPHINE 2 MG/ML SYR IV PRN (04:08)
[2023-02-25] MEDS: NA CHLORIDE 0.9% 1,000 ML IV SCH ×2 (04:08→23:20)
[2023-02-25] MEDS ORDERED: ACETAMINOPHEN 325 MG TABLET PO PRN (07:21)
[2023-02-25] MEDS: SMZ./TMP. 800/160 MG TABLET PO SCH ×2 (08:24→20:16)
[2023-02-25] MEDS: SERTRALINE HCL 50 MG TAB PO SCH ×2 (08:25→20:16)
[2023-02-25] MEDS: ENOXAPARIN 40 MG/0.4 ML SQ SCH (08:25)
[2023-02-25] MEDS: DIETHYLPROPION PO SCH (08:25)
[2023-02-25] MEDS ORDERED: SODIUM CHLORIDE 0.9% 10ML INJ IV PRN (11:28)
[2023-02-25] MEDS ORDERED: PANTOPRAZOLE 40 MG INJ IVP ONE (12:00)
--- NOTE | 2023-02-25 12:22 | P.PN ---
Date of Service: 02/25/23 Subjective: Awake, ambulating in the room c/o burning in the epigastric region. She could not tolerate the CLD, expecting it would hurt her stomach more. Will give protonix for GERD symptoms and monitor CLD tolerance. ROS: 10 point ROS as noted above, otherwise negative Physical Exam General: Alert, In no apparent distress, Oriented x3 HEENT: Atraumatic, Normocephalic, PERRLA Neck: Supple, 2+ carotid pulse no bruit, JVD not distended Respiratory: Clear to auscultation bilaterally, Normal air movement Cardiovascular: No edema, Normal pulses, Regular rate/rhythm, Normal S1 S2 Capillary refill: <2 Seconds Gastrointestinal: Normal bowel sounds, Soft and benign, Tenderness (epigastric pain to palpation) Musculoskeletal: No clubbing, No swelling, No contractures Integumentary: No rashes, No breakdown Neurological: Normal speech, Normal strength at 5/5 x4 extr, Normal tone Vitals: BP 121/72, HR 67, RR 16, Temp 98.1, O2 saturation 98% RA Problem list: Acute pancreatitis Epigastric pain Hepatomegaly Assessment and Plan - Plan Assessment and plan Acute pancreatitis Epigastric pain/ burning Hepatomegaly CLD, no nausea vomiting with this epigastric pain episode CT abdomen pelvis reports mild peripancreatic stranding, hepatomegaly Ultrasound abdomen no significant findings, common bile duct measuring 5 mm No antibiotics for now IV fluids 100 mL/h, 2 L normal saline given in the ED Pain management Protonix IV once, monitor CLD tolerance Follow up outpatient for hepatomegaly History of anxiety Continue home medication History of UTI outpatient Bactrim, finish two doses DVT PPx Lovenox Full code LOS 24 hours Discharge Plan: Home Plan to discharge in: 24 Hours
[2023-02-25] MEDS: HYDROCODONE/APAP 5/325 MG TAB PO PRN ×2 (14:07→20:16)
[2023-02-26] MEDS: HYDROCODONE/APAP 5/325 MG TAB PO PRN ×5 (01:33→21:38)
[2023-02-26 02:48] LABS: Hematocrit 36.4 % (36.0-45.0); Lymphocytes % 20.8 % (15.3-44.8); MCV 81.9 fL (80-100); MPV 7.3 fL (7.6-11.3); Platelets 271 thou/uL (152-406); RBC Red Blood Cell Count 4.45 M/uL (3.86-4.86)
[2023-02-26 03:01] LABS: Albumin 3.5 g/dL (3.4-5.0); Bilirubin Total 0.4 mg/dL (0.2-1.0); Magnesium 2.1 mg/dL (1.6-2.4); Phosphorus 2.8 mg/dL (2.5-4.9); Potassium 3.7 mEq/L (3.5-5.1); Protein, Total 6.7 g/dL (6.4-8.2)
[2023-02-26] MEDS: ENOXAPARIN 40 MG/0.4 ML SQ SCH (08:56)
[2023-02-26] MEDS: SERTRALINE HCL 50 MG TAB PO SCH ×2 (08:56→20:17)
[2023-02-26] MEDS: SMZ./TMP. 800/160 MG TABLET PO SCH (09:00)
[2023-02-26] MEDS: DIETHYLPROPION PO SCH (09:00)
[2023-02-26] MEDS ORDERED: POTASSIUM CL SA 10 MEQ TAB PO ONE (09:00)
[2023-02-26] MEDS: NA CHLORIDE 0.9% 1,000 ML IV SCH ×3 (11:03→20:00)
[2023-02-26] MEDS ORDERED: MAGNES/ALUMIN/SIMET 30ML UCUP PO PRN (13:28)
[2023-02-26] MEDS ORDERED: SODIUM CHLORIDE 0.9% 10ML INJ IV PRN (13:28)
[2023-02-26] MEDS ORDERED: BISACODYL E.C. 5 MG TAB PO PRN (13:36)
[2023-02-26] MEDS: PANTOPRAZOLE 40 MG INJ IVP SCH (13:44)
[2023-02-26] MEDS: ONDANSETRON 4 MG/2 ML VIAL IV PRN (16:12)
--- NOTE | 2023-02-26 18:11 | P.PN ---
Date of Service: 02/26/23 Subjective: Awake, at the bedside. Keeping down the CLD, and FLD. Still c/o burning in her stomach. Likely discharge in the AM ROS: 10 point ROS as noted above, otherwise negative Physical Exam General: Alert, In no apparent distress, Oriented x3 HEENT: Atraumatic, Normocephalic, PERRLA Neck: Supple, 2+ carotid pulse no bruit, JVD not distended Respiratory: Clear to auscultation bilaterally, Normal air movement Cardiovascular: No edema, Normal pulses, Regular rate/rhythm, Normal S1 S2 Capillary refill: <2 Seconds Gastrointestinal: Normal bowel sounds, Soft and benign, Tenderness (epigastric pain to palpation) Musculoskeletal: No clubbing, No swelling, No contractures Integumentary: No rashes, No breakdown Neurological: Normal speech, Normal strength at 5/5 x4 extr, Normal tone Vitals: Reviewed and Stable Problem list: Acute pancreatitis Epigastric pain Hepatomegaly Assessment and Plan - Plan Assessment and plan Acute pancreatitis Epigastric pain/ burning Hepatomegaly CLD and FLD without nausea CT abdomen pelvis reports mild peripancreatic stranding, hepatomegaly Ultrasound abdomen no significant findings, common bile duct measuring 5 mm No antibiotics for now IV fluids 100 mL/h, 2 L normal saline given in the ED Pain management Protonix IV once, monitor CLD tolerance Follow up outpatient for hepatomegaly History of anxiety Continue home medication History of UTI outpatient Bactrim, finish two doses- complete DVT PPx Lovenox Full code LOS 24 hours Discharge Plan: Home Plan to discharge in: 24 Hours Time Spent Managing PTS Care (In Minutes): 35
[2023-02-27] MEDS: HYDROCODONE/APAP 5/325 MG TAB PO PRN ×2 (01:29→06:55)
[2023-02-27] MEDS: NA CHLORIDE 0.9% 1,000 ML IV SCH (01:30)
[2023-02-27 02:31] LABS: Absolute Lymphocytes (CBC) 2.1 K/uL (0.7-4.9); Hematocrit 35.5 % (36.0-45.0); Lymphocytes % 26.2 % (15.3-44.8); MCV 81.9 fL (80-100); MPV 7.5 fL (7.6-11.3); Platelets 276 thou/uL (152-406); RBC Red Blood Cell Count 4.34 M/uL (3.86-4.86)
[2023-02-27 03:02] LABS: Albumin 3.4 g/dL (3.4-5.0); Bilirubin Total 0.3 mg/dL (0.2-1.0); Magnesium 1.9 mg/dL (1.6-2.4); Phosphorus 2.8 mg/dL (2.5-4.9); Potassium 3.6 mEq/L (3.5-5.1); Protein, Total 6.6 g/dL (6.4-8.2)
[2023-02-27] MEDS: SERTRALINE HCL 50 MG TAB PO SCH (08:04)
[2023-02-27] MEDS: PANTOPRAZOLE 40 MG INJ IVP SCH (08:04)
[2023-02-27] MEDS: ENOXAPARIN 40 MG/0.4 ML SQ SCH (08:04)
[2023-02-27] MEDS: DIETHYLPROPION PO SCH (08:05)
[2023-02-27] MEDS ORDERED: POTASSIUM CL SA 10 MEQ TAB PO ONE (09:00)
--- NOTE | 2023-02-27 10:11 | P.DS ---
Admission Date: 02/24/23 Discharge Date: 02/27/23 Disposition: ROUTINE DISCHARGE Discharge Condition: GOOD Reason for Admission: Abdominal pain Brief History of Present Illness: Problem list: Acute pancreatitis Epigastric pain Hepatomegaly Funmilayo Kitchen is a 42-year-old female with past medical history of anxiety, past surgical history of cholecystectomy (ten years ago) who presents to the ED with complaints of abdominal pain and tenderness. She reports acute epigastric pain started last night believing this could be a reaction to Bactrim that she was taking for UTI. She reports having 2 glasses of wine last night while taking her dose of Bactrim. With symptoms of epigastric pain only ultrasound of the abdomen was performed reporting normal size of the common bile duct measuring 5 mm, liver demonstrates no findings of intra hepatic biliary dilatation. CT abdomen pelvis reports pancreas with mild peripancreatic stranding, hepatomegaly. Initial vitals BP 124 / 78; Pulse 75; Resp 16; Temp 97.6; Pulse Ox 99% on R/A. Laboratory evaluation with WBC 11.9, H&H 12/38, sodium 136, potassium 3.4, BUN/creatinine 9/0.66, lipase 1149. Funmilayo will be admitted to hospitalist service for further evaluation and treatment of acute pancreatitis. Hospital Course: Funmilayo Kitchen is a pleasant 42-year-old female with a past medical history significant for anxiety, past surgical history of cholecystectomy (ten years ago) who was admitted to the [facility] on 02/25/2020 abdominal pain, acute pancreatitis. And was admitted with a starting lipase of 1149. She has tolerated IV fluids, Protonix, Zofran. Lipase has trended down since admission to 305 today. She has tolerated clear liquid diet and full liquid diet without nausea. She will advance her diet to GI soft as tolerable. This morning she is felt much better and is ready for discharge. She is ambulating independently, on room air satting 96%, conversing well, afebrile, and hemodynamically stable. On 02/27/2023, Funmilayo was seen on morning rounds and deemed medically stable for discharge. Funmilayo was discharged with instructions to schedule follow-up appointments with PCP and gastroenterology. Funmilayo was provided prescriptions for Zofran, Carafate, and Protonix. The patient and family members were given the opportunity to ask questions and reported no further questions. Furthermore, all questions were answered to the best of my ability. A copy of this discharge summary will be sent to the above providers to facilitate continuity of care. Today, I personally spent 55 minutes with Funmilayo, of which greater than 50% of the time was spent in patient education, counseling, and coordination of care as described above. Vital Signs/Physical Exam: Temp Pulse Resp BP Pulse Ox 97.4 F 60 15 96/54 L 98 02/27/23 04:00 02/27/23 04:00 02/27/23 06:55 02/27/23 04:00 02/27/23 06:55 Laboratory Data at Discharge: WBC 7.90 thou/uL (4.3-10.9) 02/27/23 01:22 Hgb 12.2 g/dL (12.0-15.0) 02/27/23 01:22 Hct 35.5 % (36.0-45.0) L 02/27/23 01:22 Plt Count 276 thou/uL (152-406) 02/27/23 01:22 Sodium 138 mEq/L (136-145) 02/27/23 01:22 Potassium 3.6 mEq/L (3.5-5.1) 02/27/23 01:22 BUN 5 mg/dL (7-18) L 02/27/23 01:22 Creatinine 0.63 mg/dL (0.55-1.02) 02/27/23 01:22 Glucose 92 mg/dL (74-106) 02/27/23 01:22 Phosphorus 2.8 mg/dL (2.5-4.9) 02/27/23 01:22 Magnesium 1.9 mg/dL (1.6-2.4) 02/27/23 01:22 Total Bilirubin 0.3 mg/dL (0.2-1.0) 02/27/23 01:22 AST 8 U/L (15-37) L 02/27/23 01:22 ALT 17 U/L (13-56) 02/27/23 01:22 Alkaline Phosphatase 56 U/L (45-117) 02/27/23 01:22 Lipase 305 U/L (13-75) H 02/27/23 01:22 Home Medications: Diethylpropion HCl 75 mg PO DAILY 02/24/23 Sertraline [Zoloft*] 50 mg PO BID 02/24/23 Ondansetron [Zofran] 4 mg PO Q6H PRN 5 Days #15 tab 02/27/23 Pantoprazole [Protonix Tab] 40 mg PO DAILY 30 Days #30 tab 02/27/23 Sucralfate [Carafate -Tab] 1 gm PO QID PRN 8 Days #30 tab 02/27/23 bisacodyL [Dulcolax*] 10 mg PO DAILY PRN tab 02/27/23 New Medications: Sucralfate [Carafate -Tab] 1 gm PO QID PRN 8 Days #30 tab PRN Reason: Indigestion Pantoprazole [Protonix Tab] 40 mg PO DAILY 30 Days #30 tab Ondansetron [Zofran] 4 mg PO Q6H PRN 5 Days #15 tab PRN Reason: Nausea / Vomiting Physician Discharge Instructions: Physical Exam General: Alert, In no apparent distress, Oriented x3 HEENT: Atraumatic, Normocephalic, PERRLA Neck: Supple, 2+ carotid pulse no bruit, JVD not distended Respiratory: Clear to auscultation bilaterally, Normal air movement Cardiovascular: No edema, Normal pulses, Regular rate/rhythm, Normal S1 S2 Capillary refill: <2 Seconds Gastrointestinal: Normal bowel sounds, Soft and benign, Tenderness (epigastric pain to palpation) Musculoskeletal: No clubbing, No swelling, No contractures Integumentary: No rashes, No breakdown Neurological: Normal speech, Normal strength at 5/5 x4 extr, Normal tone 1. Follow up with Gastroenterology Dr. Benavidez, for enlarged liver and continued management for GERD symptoms 2. Follow up with PCP for continued medication management 3. over the counter medication for GERD symptom relief are as follows - Maalox 30 ml every 6 hrs as needed 4. Over the counter medication stool softener -Dulcolax 10 mg by mouth daily as needed 5. advance diet as tolerated, GI soft diet is recommended 6. no activity restrictions 7. Full course of bactrim completed during this admission, UA negative on admission 8. Return to the ED if symptoms worsen New medications Protonix 40 mg tablet by mouth daily Carafate 1 gm tablet four times daily as needed for indigestion zofran 4 mg q8h Diet: soft GI Activity: Ad henrietta Followup: Andrea Benavidez MD [ACTIVE - CAN ADMIT] -
[2023-02-27] MEDS ORDERED: SUCRALFATE 1GM/10ML UCUP FT ONE (10:29)
[2023-02-27 10:32] VITALS: BP 101/63; TEMP 97.6
== END 2023-02-27 11:05 | disposition home or self-care (01) | DRG 440 ==
LOC: ER 03:49 → ERHOLD 08:16 → 2ND 17:56
PROVIDERS: ADMIT Internal Medicine; ATTEND Internal Medicine
DX: K85.90 Acute pancreatitis without necrosis or infection, unspecified (principal); F41.9 Anxiety disorder, unspecified; R16.0 Hepatomegaly, not elsewhere classified; Z90.49 Acquired absence of other specified parts of digestive tract; Z79.899 Other long term (current) drug therapy
CPT/HCPCS: 36415; 74176; 76705; 80053; 81003; 83690; 83735; 84100; 85025; 87635; 99285; C9113; J1650; J2270; J2405; J2765; J7030

== ENCOUNTER 2024-08-08 01:44 | Emergency (ER) | payer BC ==
[2024-08-08] MEDS ORDERED: MORPHINE 4 MG/ML SYR ONE (02:36)
[2024-08-08] MEDS ORDERED: KETOROLAC 30 MG/ML INJ ONE (02:36)
[2024-08-08] MEDS ORDERED: FAMOTIDINE 20 MG/2 ML VIAL IV ONE (02:36)
[2024-08-08] MEDS ORDERED: ONDANSETRON 4 MG/2 ML VIAL ONE (02:36)
[2024-08-08] MEDS ORDERED: droPERidol 5 MG/2 ML VIAL ONE (02:36)
[2024-08-08] MEDS ORDERED: NA CHLORIDE 0.9% 1,000 ML ONE (02:36)
[2024-08-08 03:06] LABS: Absolute Monocytes 0.7 K/uL (0.1-1.3); Absolute Neutrophil 2.6 K/uL (1.8-8.0); Basophils % 0.6 % (0-1.3); Eosinophils % 0.5 % (0-4.4); Hematocrit 37.9 % (36.0-45.0); Hemoglobin 13.2 g/dL (12.0-15.0); Lymphocytes % 36.8 % (15.3-44.8); MCH 28.2 pg (27.0-35.0); MCHC 34.8 g/dL (32.0-36.0); MCV 81.1 fL (80-100); MPV 7.7 fL (7.6-11.3); Monocytes % 13.3 % (3.3-12.3); Neutrophils % 48.8 % (41.7-73.7); Nucleated Red Blood Cells % 0.1 % (0-0); Platelets 250 thou/uL (152-406); RBC Red Blood Cell Count 4.67 M/uL (3.86-4.86); Red Cell Distribution Width 14.4 % (12.1-15.2)
[2024-08-08 03:20] LABS: Specific Gravity 1.046 (1.005-1.030)
[2024-08-08 03:25] LABS: Albumin 3.4 g/dL (3.4-5.0); Anion Gap 10.3 mEq/L (5.0-15.0); Bilirubin Total 0.2 mg/dL (0.2-1.0); Globulin 3.5 g/dL (2.3-3.5); Potassium 3.3 mEq/L (3.5-5.1); Protein, Total 6.9 g/dL (6.4-8.2)
--- NOTE | 2024-08-08 05:55 | ER ---
Nurse's Notes [facility] Name: Funmilayo Kitchen Age: 44 yrs Sex: Female : 1980 Arrival Date: 08/08/2024 Time: 01:44 Bed 5 Private MD: Diagnosis: Acute gastritis;Acute gastritis without bleeding Presentation: 08/08 01:50 Method Of Arrival: Ambulatory bm8 01:50 Acuity: ANDRES 3 bm8 01:51 Chief complaint: Patient states: UPPER ABDOMINAL PAIN, IT FEELS LIKE THE LAST TIME I ha1 HAD PANCREATITIS. ALSO, I WAS DIAGNOSED WITH FLU A YESTERDAY. COUGH. 01:51 Coronavirus screen: Client denies travel out of the [place] in the last 14 days. Ebola ha1 Screen: No symptoms or risks identified at this time. Initial Sepsis Screen: Does the patient meet any 2 criteria? No. Patient's initial sepsis screen is negative. Does the patient have a suspected source of infection? No. Patient's initial sepsis screen is negative. Risk Assessment: Do you want to hurt yourself or someone else? Patient reports no desire to harm self or others. Onset of symptoms was August 08, 2024. Triage Assessment: 01:51 General: Appears uncomfortable, Behavior is cooperative. Pain: Complains of pain in ha1 right upper quadrant and left upper quadrant Pain currently is 5 out of 10 on a pain scale. Quality of pain is described as burning. Neuro: Level of Consciousness is awake, alert, obeys commands, Oriented to person, place, time, situation. Cardiovascular: Capillary refill < 3 seconds Patient's skin is warm and dry. Respiratory: Reports cough that is persistent Airway is patent Respiratory effort is even, unlabored, Respiratory pattern is regular, symmetrical. GI: Reports upper abdominal pain. Derm: Skin is pink, warm \T\ dry. Historical: - Allergies: 01:50 No Known Allergies; bm8 - Home Meds: 01:50 Zoloft 50 mg Oral tab 1 tab once daily [Active]; bm8 - PMHx: 01:50 Anxiety; Pancreatitis; bm8 - PSHx: 01:50 Cholecystectomy; bm8 - Immunization history:: Adult Immunizations up to date. - Infectious Disease History:: Denies. - Social history:: Smoking status: Patient denies any tobacco usage or history of. - Family history:: not pertinent. Screenin:01 [facility] ED Fall Risk Assessment (Adult) History of falling in the last 3 months, km10 including since admission No falls in past 3 months (0 pts) Confusion or Disorientation No (0 pts) Intoxicated or Sedated No (0 pts) Impaired Gait No (0 pts) Mobility Assist Device Used No (0 pt) Altered Elimination Yes (1 pt) Score/Fall Risk Level 0 - 2 = Low Risk. Abuse screen: Denies threats or abuse. Denies injuries from another. Nutritional screening: No deficits noted. Tuberculosis screening: No symptoms or risk factors identified. Assessment: 01:59 General: Appears uncomfortable, Behavior is calm, cooperative, appropriate for age. km10 Pain: Complains of pain in right lower quadrant and left lower quadrant Pain currently is 5 out of 10 on a pain scale. Quality of pain is described as burning, dull, Pain began 2-3 days ago. Neuro: Level of Consciousness is awake, alert, Oriented to person, place, time, situation, Appropriate for age. Respiratory: Respiratory effort is even, unlabored. GI:. 04:17 Reassessment: Patient appears in no apparent distress at this time. Patient and/or km10 family updated on plan of care and expected duration. Pain level reassessed. 04:39 Reassessment: Patient appears in no apparent distress at this time. Patient and/or bm8 family updated on plan of care and expected duration. Pain level reassessed. Patient is alert, oriented x 3, equal unlabored respirations, skin warm/dry/pink. Pain: Pain currently is 3 out of 10 on a pain scale. Vital Signs: 01:51 BP 115 / 80; Pulse 80; Resp 17 S; Temp 98.1(O); Pulse Ox 97% on R/A; Weight 83.91 kg; ha1 Height 5 ft. 6 in. ; Pain 5/10; 04:16 BP 94 / 64; Pulse 63; Resp 20; Pulse Ox 96% on R/A; km10 04:39 BP 100 / 69; Pulse 79; Resp 16; Temp 98.1; Pulse Ox 100% ; Pain 0/10; bm8 05:48 BP 98 / 68; Pulse 67; Resp 18; Pulse Ox 97% on R/A; km10 01:51 Body Mass Index 29.86 (83.91 kg, 167.64 cm) ha1 01:51 Pain Scale: Adult ha1 04:39 Pain Scale: Adult bm8 Fidel Coma Score: 04:39 Eye Response: spontaneous(4). Motor Response: obeys commands(6). Verbal Response: bm8 oriented(5). Total: 15. 23:44 Eye Response: spontaneous(4). Motor Response: obeys commands(6). Verbal Response: sp4 oriented(5). Total: 15. ED Course: 01:47 Patient arrived in ED. jj6 01:55 Nesha Cates, RN is Primary Nurse. km10 02:01 Patient has correct armband on for positive identification. Bed in low position. Call km10 light in reach. Side rails up X 1. Provided Education on: plan of care. 02:02 Inserted saline lock: 20 gauge in right antecubital area, using aseptic technique. km10 02:05 William Baekr MD is Attending Physician. sp4 02:24 Triage completed. bm8 04:02 CT Abd/Pelvis - IV Contrast Only In Process Unspecified. EDMS 04:40 No provider procedures requiring assistance completed. bm8 05:54 Shady Hill MD is Referral Physician. sp4 05:56 IV discontinued, intact, No redness/swelling at site. Pressure dressing applied. tb4 Administered Medications: 02:46 Drug: Famotidine IVP 20 mg IVP once; dilute with 10 mL 0.9% NaCl; give over 2 minutes bm8 Route: IVP; Site: right antecubital; 05:43 Follow up: Response: No adverse reaction bm8 02:46 Drug: NS 0.9% IV 1000 ml IV at 1 bolus Per protocol; to be given as a bolus over 60 bm8 minutes Route: IV; Rate: 1 bolus; Site: right antecubital; 05:44 Follow up: Response: No adverse reaction; IV Status: Completed infusion bm8 02:46 Drug: Droperidol IVP 2.5 mg IVP once Route: IVP; Site: right antecubital; bm8 05:43 Follow up: Response: No adverse reaction bm8 02:46 Drug: Ketorolac IVP 30 mg IVP once Route: IVP; Site: right antecubital; bm8 05:43 Follow up: Response: No adverse reaction bm8 02:47 Drug: Ondansetron IVP 4 mg IVP once; over 2 minutes Route: IVP; Site: right antecubital;bm8 05:45 Follow up: Response: No adverse reaction bm8 02:47 Drug: morphine IVP or IV 4 mg IVP once over 4 mins Route: IVP; Infused Over: 4 mins; bm8 Site: right antecubital; 05:45 Follow up: Response: No adverse reaction bm8 05:59 Drug: GI Cocktail without - (Maalox PO 30 ml, Lidocaine Mucous Membrane 2 % 15 tb4 ml) PO once Route: PO; 06:03 Follow up: Response: Medication administered at discharge. tb4 Medication: 05:44 VIS not applicable for this client. bm8 Outcome: 05:55 Discharge ordered by . sp4 05:56 Discharged to home ambulatory, tb4 05:56 Condition: stable 05:56 Discharge instructions given to patient, Instructed on discharge instructions, follow up and referral plans. no drinking with medication, no driving heavy equipment, Demonstrated understanding of instructions, follow-up care, 06:02 Patient left the ED. tb4 Signatures: Dispatcher [employer] EDMS Jesus Cyndie [id number] Cookie Awan RN RN ha1 William Baker MD MD sp4 George Gill RN RN bm8 Nesha Cates, RN RN km10 Tricia Esquivel, RN RN tb4 Corrections: (The following items were deleted from the chart) 03:16 01:50 Chief complaint: Patient states: UPPER ABDOMINAL PAIN, IT FEELS LIKE THE LAST ha1 TIME I HAD PANCREATITIS. ALSO, I WAS DIAGNOSED WITH FLU A YESTERDAY. COUGH 8 :16 01:50 Coronavirus screen: Client denies travel out of the [place] in the last 14 days. 8 ha 03:16 01:50 Ebola Screen: No symptoms or risks identified at this time. 8 1 :16 01:50 Initial Sepsis Screen: Does the patient meet any 2 criteria? No. Patient's ha1 initial sepsis screen is negative. Does the patient have a suspected source of infection? No. Patient's initial sepsis screen is negative. 8 :16 01:50 Risk Assessment: Do you want to hurt yourself or someone else? Patient reports no ha1 desire to harm self or others. [facility] 01:50 Onset of symptoms was August 08, 2024 [place] [address] : 01:50 BP 115 / 80; Pulse 80bpm; Resp 17bpm; Spontaneous; Pulse Ox 97% RA; Temp 98.1F ha1 Oral; 83.91 kg; Height 5 ft. 6 in.; BMI: 29.8; Pain 5/10, Adult; [facility] 01:50 Immunization history: Adult Immunizations up to date, [place] [address] 01:50 Social history: Smoking status: Patient denies any tobacco usage or history of. 1 [facility] 01:50 General: Appears uncomfortable, Behavior is cooperative, [place] [address] 01:50 GI: Reports upper abdominal pain, [place] [address] 01:50 Derm: Skin is pink, warm \T\ dry. [place] [address] : 01:50 Pain: Complains of pain in right upper quadrant and left upper quadrant Pain ha1 currently is 5 out of 10 on a pain scale. Quality of pain is described as burning, [facility] 01:50 Neuro: Level of Consciousness is awake, alert, obeys commands, Oriented to ha1 person, place, time, situation, [facility] 01:50 Cardiovascular: Capillary refill < 3 seconds Patient's skin is warm and dry. [place] [address] 01:50 Respiratory: Reports cough that is persistent Airway is patent Respiratory effort ha1 is even, unlabored, Respiratory pattern is regular, symmetrical, [facility]
--- NOTE | 2024-08-08 05:55 | EDPHYS ---
Physician Documentation [facility] Name: Funmilayo Kitchen Age: 44 yrs Sex: Female : 1980 Arrival Date: 08/08/2024 Time: 01:44 Bed 5 Private MD: ED Physician William Baker HPI: 08/08 02:05 This 44 yrs old Female presents to ER via Unassigned with complaints of sp4 Abdominal Pain. 23:44 44-year-old female presents with acute onset of upper abdominal pain.. sp4 Historical: - Allergies: 01:50 No Known Allergies; bm8 - Home Meds: 01:50 Zoloft 50 mg Oral tab 1 tab once daily [Active]; bm8 - PMHx: 01:50 Anxiety; Pancreatitis; bm8 - PSHx: 01:50 Cholecystectomy; bm8 - Immunization history:: Adult Immunizations up to date. - Infectious Disease History:: Denies. - Social history:: Smoking status: Patient denies any tobacco usage or history of. - Family history:: not pertinent. ROS: 23:44 Constitutional: Negative for fever, chills, and weight loss, positive upper abdominal sp4 pain 23:44 All other systems are negative, Exam: 23:44 Constitutional: This is a well developed, well nourished patient who is awake, alert, sp4 and in no acute distress. Head/Face: Normocephalic, atraumatic. Eyes: Pupils equal round and reactive to light, extra-ocular motions intact. Lids and lashes normal. Conjunctiva and sclera are not injected. Cornea within normal limits. Periorbital areas with no swelling, redness, or edema. ENT: Nares patent. No nasal discharge, no septal abnormalities noted. Tympanic membranes are normal and external auditory canals are clear. Oropharynx with no redness, swelling, or masses, exudates, or evidence of obstruction, uvula midline. Mucous membranes moist. Neck: Trachea midline, no thyromegaly or masses palpated, and no cervical lymphadenopathy. Supple, full range of motion without nuchal rigidity, or vertebral point tenderness. Chest/axilla: Normal chest wall appearance and motion. Nontender with no deformity. No lesions are appreciated. Cardiovascular: Regular rate and rhythm with a normal S1 and S2. No gallops, murmurs, or rubs. Normal PMI, no JVD. No pulse deficits. Respiratory: Lungs have equal breath sounds bilaterally, clear to auscultation and percussion. No rales, rhonchi or wheezes noted. No increased work of breathing, no retractions or nasal flaring. Abdomen/GI: Soft, with normal bowel sounds. No distension or tympany. No guarding or rebound. No evidence of tenderness throughout. Back: No spinal tenderness. No costovertebral tenderness. Skin: Warm, dry with normal turgor. Normal color with no rashes, no lesions, and no evidence of cellulitis. MS/ Extremity: Pulses equal, no cyanosis. Neurovascular intact. Full, normal range of motion. Neuro: Awake and alert, GCS 15, oriented to person, place, time, and situation. Cranial nerves II-XII grossly intact. Motor strength 5/5 in all extremities. Sensory grossly intact. Psych: Awake, alert, with orientation to person, place and time. Behavior, mood, and affect are within normal limits Vital Signs: 01:51 BP 115 / 80; Pulse 80; Resp 17 S; Temp 98.1(O); Pulse Ox 97% on R/A; Weight 83.91 kg; ha1 Height 5 ft. 6 in. ; Pain 5/10; 04:16 BP 94 / 64; Pulse 63; Resp 20; Pulse Ox 96% on R/A; km10 04:39 BP 100 / 69; Pulse 79; Resp 16; Temp 98.1; Pulse Ox 100% ; Pain 0/10; bm8 05:48 BP 98 / 68; Pulse 67; Resp 18; Pulse Ox 97% on R/A; km10 01:51 Body Mass Index 29.86 (83.91 kg, 167.64 cm) ha1 01:51 Pain Scale: Adult ha1 04:39 Pain Scale: Adult bm8 Fiedl Coma Score: 04:39 Eye Response: spontaneous(4). Motor Response: obeys commands(6). Verbal Response: bm8 oriented(5). Total: 15. 23:44 Eye Response: spontaneous(4). Motor Response: obeys commands(6). Verbal Response: sp4 oriented(5). Total: 15. MDM: 03:15 Medical Screening Exam initiated sp4 05:47 ED course: EXAM DESCRIPTION: Abdomen Pelvis W Contrast CLINICAL HISTORY: ABD PAIN sp4 COMPARISON: None Available. TECHNIQUE: CT of the abdomen and pelvis performed following the administration of IV contrast. No oral contrast. This exam was performed according to our departmental dose-optimization program, which includes automated exposure control, adjustment of the mA and/or kV according to patient size and/or use of iterative reconstruction technique. FINDINGS: Lung Bases: Mild bilateral opacities probably representing atelectasis. There is some asymmetric nodular asymmetry involving the visualized left breast. This is incompletely assessed. Abdomen: Liver: The liver has normal contour and density. Liver is enlarged. No suspicious mass. Gallbladder: Surgically absent. No significant biliary dilatation. Spleen, Pancreas, and Adrenal Glands: Spleen is borderline in size. Pancreas and adrenal glands are unremarkable. Kidneys: No suspicious mass. No urinary tract calculi. No hydronephrosis. Vasculature: The aorta and IVC have normal caliber and position. The portal vein is patent. The proximal visceral and renal arteries are patent. Stomach: The stomach and duodenum have normal course. Pelvis: Bowel: No dilated loops of large or small bowel. Mild colon diverticulosis. Appendix: Normal appendix. Bladder: Urinary bladder is unremarkable. Reproductive: No suspicious mass. Other: No free intraperitoneal air. No free fluid or lymphadenopathy. Bones: No destructive bone lesions identified. IMPRESSION: 1. No acute abnormality on CT of the abdomen and pelvis. 2. Hepatomegaly. 3. Mild colon diverticulosis. 4. Nodular asymmetry in the visualized left breast. Recommend correlation with mammography. Electronically signed by: Mary Ken MD 08/08/2024 05:14 AM. 23:44 Differential diagnosis: diverticulitis, Endometriosis, gastritis, gastroesophageal sp4 reflux disease, Hepatitis. Data reviewed: vital signs, nurses notes, lab test result(s), radiologic studies, CT scan. Consideration of Admission/Observation Escalation of care including admission/observation considered. ED course: Patient was informed that she has asymmetric left breast nodularity which should be investigated with mammogram, ultrasound or both. Patient was advised to seek mammogram investigation next 7 to 10 days.. 08/08 02:56 Order name: CBC with Diff; Complete Time: 05:47 08/08 02:56 Order name: CMP; Complete Time: 05:47 08/08 02:56 Order name: Lipase; Complete Time: 05:47 08/08 02:56 Order name: Test, Urine; Complete Time: 05:47 bm8 08/08 02:35 Order name: CT Abd/Pelvis - IV Contrast Only sp4 08/08 02:02 Order name: IV Saline Lock; Complete Time: 02:02 tb4 08/08 02:02 Order name: Labs collected and sent; Complete Time: 02:02 tb4 Administered Medications: 02:46 Drug: Famotidine IVP 20 mg IVP once; dilute with 10 mL 0.9% NaCl; give over 2 minutes bm8 Route: IVP; Site: right antecubital; 05:43 Follow up: Response: No adverse reaction bm8 02:46 Drug: NS 0.9% IV 1000 ml IV at 1 bolus Per protocol; to be given as a bolus over 60 bm8 minutes Route: IV; Rate: 1 bolus; Site: right antecubital; 05:44 Follow up: Response: No adverse reaction; IV Status: Completed infusion bm8 02:46 Drug: Droperidol IVP 2.5 mg IVP once Route: IVP; Site: right antecubital; bm8 05:43 Follow up: Response: No adverse reaction bm8 02:46 Drug: Ketorolac IVP 30 mg IVP once Route: IVP; Site: right antecubital; bm8 05:43 Follow up: Response: No adverse reaction bm8 02:47 Drug: Ondansetron IVP 4 mg IVP once; over 2 minutes Route: IVP; Site: right antecubital;bm8 05:45 Follow up: Response: No adverse reaction bm8 02:47 Drug: morphine IVP or IV 4 mg IVP once over 4 mins Route: IVP; Infused Over: 4 mins; bm8 Site: right antecubital; 05:45 Follow up: Response: No adverse reaction bm8 05:59 Drug: GI Cocktail without - (Maalox PO 30 ml, Lidocaine Mucous Membrane 2 % 15 tb4 ml) PO once Route: PO; 06:03 Follow up: Response: Medication administered at discharge. tb4 Disposition: 23:44 Chart complete. sp4 Disposition Summary: 08/08/24 05:55 Discharge Ordered Problem: new sp4 Symptoms: have improved sp4 Condition: Stable sp4 Diagnosis - Acute gastritis sp4 - Acute gastritis without bleeding sp4 Followup: sp4 - With: Shady Hill MD - When: 7 - 10 days - Reason: Recheck today's complaints Discharge Instructions: - Discharge Summary Sheet sp4 - Gastritis, Adult, [id number] sp4 Forms: - Patient Portal Instructions sp4 Prescriptions: - pantoprazole 40 mg Oral tablet, delayed release (enteric coated) - take 1 tablet ORAL route daily; 90 tablet; Refills: 0, Product Selection sp4 Permitted Signatures: Dispatcher [employer] Cookie Douglas RN RN ha1 William Baker MD MD sp4 George Gill RN RN bm8 Tricia Esquivel RN RN tb4 Corrections: (The following items were deleted from the chart) 03:16 01:50 Immunization history: Adult Immunizations up to date, 8 03:16 01:50 Social history: Smoking status: Patient denies any tobacco usage or history of. ha1 bm8
[2024-08-08] MEDS ORDERED: MAGNES/ALUMIN/SIMET 30ML UCUP ONE (05:56)
[2024-08-08] MEDS ORDERED: LIDOCAINE VISCOUS 2% 10ML ORAL SOLN ONE (05:58)
[2024-08-08 06:08] VITALS: TEMP 98.1
[2024-08-08 06:13] VITALS: BP 98/68; O2SAT 97
--- NOTE | 2024-08-08 06:21 | RAD REPORT ---
EXAM DESCRIPTION: Abdomen Pelvis W Contrast CLINICAL HISTORY: ABD PAIN COMPARISON: None Available. TECHNIQUE: CT of the abdomen and pelvis performed following the administration of IV contrast. No ora l contrast. This exam was performed according to our departmental dose-optimization program, which includes automated exposure control, adjustment of the mA and/or kV according to patient size and/or use of iterative reconstruction technique. FINDINGS: Lung Bases: Mild bilateral opacities probably representing atelectasis. There is some asymmetric nodu lar asymmetry involving the visualized left breast. This is incompletely assessed. Abdomen: Liver: The liver has normal contour and density. Liver is enlarged. No suspicious mass. Gallbladder: Surgically absent. No significant biliary dilatation. Spleen, Pancreas, and Adrenal Glands: Spleen is borderline in size. Pancreas and adrenal glands are unremarkable. Kidneys: No suspicious mass. No urinary tract calculi. No hydronephrosis. Vasculature: The aorta and IVC have normal caliber and position. The portal vein is patent. The pro ximal visceral and renal arteries are patent. Stomach: The stomach and duodenum have normal course. Pelvis: Bowel: No dilated loops of large or small bowel. Mild colon diverticulosis. Appendix: Normal appendix. Bladder: Urinary bladder is unremarkable. Reproductive: No suspicious mass. Other: No free intraperitoneal air. No free fluid or lymphadenopathy. Bones: No destructive bone lesions identified. IMPRESSION: 1. No acute abnormality on CT of the abdomen and pelvis. 2. Hepatomegaly. 3. Mild colon diverticulosis. 4. Nodular asymmetry in the visualized left breast. Recommend correlation with mammography. Electronically signed by: Mary Ken MD 08/08/2024 05:14 AM CDT Due to temporary technical issues with the PACS/[employer] reporting system, reports are being jadon d by the in-house radiologist without review as a courtesy to ensure prompt reporting the interpreting radiologist is fully responsible for the content of the report. Transcribed Date/Time: 08/08/2024 6:21 AM
== END 2024-08-08 06:02 | disposition home or self-care (01) ==
LOC: ER 01:44
DX: K29.00 Acute gastritis without bleeding (principal)
CPT/HCPCS: 96361; 85025; 36415; 81025; 83690; 80053; 74177; 96375; 96374; 99284; Q9967; J2405; J1790; J7030